=== PATIENT | male | born 1945 | race American Indian/Alaskan Native ===

== ENCOUNTER 2016-12-12 14:46 | Emergency (ER) | payer MEDICARE, BC, OTHER ==
[2016-12-12] MEDS ORDERED: Albuterol/Ipratropium 3.0-0.5 MG/3 ML Neb Soln NEB ONE (14:55)
--- NOTE | 2016-12-12 14:59 | EDM.PDOC ---
ED HPI GENERAL MEDICAL PROBLEM - General Stated Complaint: PT WOULD LIKE TO GET CHECK Time Seen by Provider: 12/12/16 14:46 - History of Present Illness INITIAL COMMENTS - FREE TEXT/NARRATIVE: HISTORY AND PHYSICAL: History of present illness: Patient 71-year-old white male patient with a cough productive of white phlegm and mild shortness of breath over last several days he states he's had congestion and cold symptoms he does have a cardiac history and has had stents placed he is declining any evaluation or possible treatment for any cardiac considerations he is convinced this is related to a cold and does agree to a breathing treatment as indicated chest x-ray and influenza screen and nothing more diagnostically discussed with him at length concerns of other considerations in the categorically dismisses consideration Review of systems: As per history of present illness and below otherwise all systems reviewed and negative. Past medical history: As per history of present illness and as reviewed below otherwise noncontributory. Surgical history: As per history of present illness and as reviewed below otherwise noncontributory. Social history: No reported history of drug or alcohol abuse. Family history: As per history of present illness and as reviewed below otherwise noncontributory. Physical exam: HEENT: Atraumatic, normocephalic, pupils reactive, negative for conjunctival pallor or scleral icterus, mucous membranes moist, throat clear, neck supple, nontender, trachea midline. Lungs: Slightly coarse with rare end expiratory wheezing breath sounds equal bilaterally, chest nontender. Heart: S1S2, regular, negative for clicks, rubs, or JVD. Abdomen: Soft, nondistended, nontender. Negative for masses or hepatosplenomegaly. Negative for costovertebral tenderness. Pelvis: Stable nontender. Genitourinary: Deferred. Rectal: Deferred. Extremities: Atraumatic, negative for cords or calf pain. Neurovascular unremarkable. Neuro: Awake, alert, oriented. Cranial nerves II through XII unremarkable. Cerebellum unremarkable. Motor and sensory unremarkable throughout. Exam nonfocal. Diagnostics: Chest x-ray influenza screen Therapeutics: Albuterol ipratropium nebulizer Impression: #1 pneumonitis #2 history of coronary disease Definitive disposition and diagnosis as appropriate pending reevaluation and review of above. - Related Data Allergies Allergy/AdvReac Type Severity Reaction Status Date / Time No Known Allergies Allergy Verified 09/02/16 10:38 Home Meds: Home Meds Insulin Aspart [NovoLOG] 30 unit SUBCUT BID 09/18/15 [History] Warfarin [Coumadin] 7.5 mg PO ASDIRECTED 09/18/15 [History] Aspirin 81 mg PO DAILY 09/02/16 [History] Enoxaparin [Lovenox] 140 mg SUBCUT Q12HR 09/02/16 [History] Insulin Detemir [Levemir] 80 units SUBCUT DAILY 09/02/16 [History] Lisinopril 2.5 mg PO DAILY 09/02/16 [History] Ticagrelor [Brilinta] 90 mg PO BID 09/02/16 [History] atorvaSTATin [Lipitor] 10 mg PO DAILY 09/02/16 [History] Warfarin Sodium [Jantoven] 5 mg ASDIRECTED 12/12/16 [History] Past Medical History HEENT History: Reports: None Other HEENT History: Pt had his eyes operated on when he was younger for [place] Cardiovascular History: Reports: Blood clots/VTE/DVT, CAD Other Cardiovascular History: Had heart surgery last Sunday at [place] for total blockage Respiratory History: Reports: None Gastrointestinal History: Reports: None Genitourinary History: Reports: None Musculoskeletal History: Reports: Arthritis Neurological History: Reports: CVA Other Neuro History: left side paralysis 7 years ago Psychiatric History: Reports: None Endocrine/Metabolic History: Reports: Diabetes, type II Hematologic History: Reports: Other (see below) Other Hematologic History: factor five disorder Immunologic History: Reports: None Oncologic (Cancer) History: Reports: None Dermatologic History: Reports: None - Infectious Disease History Infectious Disease History: Reports: Measles - Past Surgical History Head Surgeries/Procedures: Reports: None HEENT Surgical History: Reports: Eye surgery, Other (see below) Other HEENT Surgeries/Procedures: Corrective surgery for strabismus Cardiovascular Surgical History: Reports: Carotid stents Respiratory Surgical History: Reports: None GI Surgical History: Reports: None Male Surgical History: Reports: None Endocrine Surgical History: Reports: None Neurological Surgical History: Reports: None Musculoskeletal Surgical History: Reports: Other (see below) Other Musculoskeletal Surgeries/Procedures:: left knee surgery x5 and left and right wrist surgery Oncologic Surgical History: Reports: None Dermatological Surgical History: Reports: None Social & Family History - Family History Family Medical History: Noncontributory HEENT: Reports: None Cardiac: Reports: CAD, Heart failure Respiratory: Reports: None GI: Reports: None - Tobacco Use Smoking Status *Q: Never Smoker Second Hand Smoke Exposure: No - Caffeine Use Caffeine Use: Reports: Coffee Caffeine Use Comment: 6cups/day - Recreational Drug Use Recreational Drug Use: No ED ROS GENERAL - Review of Systems Review Of Systems: ROS reveals no pertinent complaints other than HPI. ED EXAM, GENERAL - Physical Exam Exam: See Below (See dictation) Course - Vital Signs Last Recorded V/S: Last Vital Signs Temp 37.6 C 12/12/16 15:05 Pulse 71 12/12/16 15:05 Resp 24 H 12/12/16 15:05 BP 119/57 L 12/12/16 15:05 Pulse Ox 96 12/12/16 15:05 - Orders/Labs/Meds Orders: Active Orders 24 hr Category Date Time Status RT Aerosol Therapy [RC] ASDIRECTED Care 12/12/16 14:55 Active Meds: Medications Discontinued Medications Generic Name Dose Route Start Last Admin Trade Name Francisca PRN Reason Stop Dose Admin Albuterol/Ipratropium 3 ml 12/12/16 14:55 12/12/16 15:33 Duoneb 3.0-0.5 Mg/3 Ml NEB 12/12/16 14:56 3 ml ONETIME ONE Administration Departure - Departure Time of Disposition: 16:43 Disposition: Home, Self-Care 01 Condition: good Clinical Impression: Influenza Referrals: Ashley Lipscomb MD [Primary Care Provider] - Additional Instructions: The following information is given to patients seen in the emergency department who are being discharged to home. This information is to outline your options for follow-up care. We provide all patients seen in our emergency department with a follow-up referral. The need for follow-up, as well as the timing and circumstances, are variable depending upon the specifics of your emergency department visit. If you don't have a primary care physician on staff, we will provide you with a referral. We always advise you to contact your personal physician following an emergency department visit to inform them of the circumstance of the visit and for follow-up with them and/or the need for any referrals to a consulting specialist. The emergency department will also refer you to a specialist when appropriate. This referral assures that you have the opportunity for followup care with a specialist. All of these measure are taken in an effort to provide you with optimal care, which includes your followup. Under all circumstances we always encourage you to contact your private physician who remains a resource for coordinating your care. When calling for followup care, please make the office aware that this follow-up is from your recent emergency room visit. If for any reason you are refused follow-up, please contact the [facility] emergency department at and asked to speak to the emergency department charge nurse. Tamiflu as prescribed continue current medications follow up primary medical doctor one to 2 days return as needed as discussed - My Orders Last 24 Hours: My Active Orders 12/12/16 14:55 RT Aerosol Therapy [RC] ASDIRECTED - Assessment/Plan Last 24 Hours: My Active Orders 12/12/16 14:55 RT Aerosol Therapy [RC] ASDIRECTED
[2016-12-12 15:15] VITALS: BP 119/57
--- NOTE | 2016-12-12 15:35 | CR ---
EXAMINATION: Two-view chest (PA and Lateral views). HISTORY: Shortness of breath. FINDINGS: The trachea is midline. The cardiomediastinal silhouette is within normal limits. No pulmonary infil trates, effusions or pneumothorax. Mild degenerative changes noted within the thoracic spine IMPRESSION: No acute cardiopulmonary process.
== END 2016-12-12 16:50 | disposition home or self-care (01) ==
LOC: MW.ED 14:46
DX: J11.1 Influenza due to unidentified influenza virus with other respiratory manifestations (principal); J18.9 Pneumonia, unspecified organism; M19.90 Unspecified osteoarthritis, unspecified site; E11.9 Type 2 diabetes mellitus without complications; Z86.73 Personal history of transient ischemic attack (TIA), and cerebral infarction without residual deficits; Z86.718 Personal history of other venous thrombosis and embolism; Z79.4 Long term (current) use of insulin; Z79.899 Other long term (current) drug therapy; Z98.890 Other specified postprocedural states
CPT/HCPCS: 71020; 71020-26; 87804; 94664; 99284; 99284-25

== ENCOUNTER 2017-07-26 14:41 | Observation (INO) | payer MEDICARE, BC, OTHER ==
--- NOTE | 2017-07-26 14:42 | EDM.PDOC ---
ED HPI GENERAL MEDICAL PROBLEM - General Time Seen by Provider: 07/26/17 14:42 Source of Information: Reports: Patient History Limitations: Reports: No Limitations - History of Present Illness INITIAL COMMENTS - FREE TEXT/NARRATIVE: HISTORY AND PHYSICAL: Chest pain History of present illness: Patient is a 71-year-old male presents to the emergency room via EMS with complaints of chest pain. Last night patient was trying to get his snowblower "up and running" when he became short of breath. He states he did go inside and the shortness of breath resolved, it did not have any chest pain at that time. Was able to fall asleep without any complications or awakenings. At approximately noon today he started having midsternal chest pain that would not resolve. He proceeded to go to [facility] for an evaluation. They did an EKG and assessed him and wanted him to be seen in the emergency room. The provider at [facility] said that his EKG there was normal but wanted him evaluated due to his cardiac history. Prior to arrival he had a total of 3 of nitroglycerin which took his pain from a 5 /10 to a 1 /10, he also had 324 mg of aspirin prior to arrival. Upon patient arrival he states his chest pain as a 1 out of 10 currently. Points to his right chest wall and says it radiates across to the left chest wall. Denies any diaphoresis, shortness of breath, nausea or vomiting. Patient has a past medical history of DVT, type 2 diabetes, hypertension, Factor V Leiden mutation, and cardiac history. He had an FL with stent placement in August 2016 at [facility]. 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 Patient is on lifetime anticoagulant therapy. He reports he stopped his lisinopril by his own choosing approximately 2 months ago. Blood sugar prior to arrival is 331. Review of systems: As per history of present illness and below otherwise all systems reviewed and negative. Past medical history: As per history of present illness and as reviewed below otherwise noncontributory. Surgical history: As per history of present illness and as reviewed below otherwise noncontributory. Social history: No reported history of drug or alcohol abuse. Family history: As per history of present illness and as reviewed below otherwise noncontributory. Physical exam: Gen.: Nontoxic appearing 71-year-old male. Able to speak in full sentences without shortness of breath. Alert and oriented. HEENT: Atraumatic, normocephalic, pupils reactive, negative for conjunctival pallor or scleral icterus, mucous membranes moist, throat clear, neck supple, nontender, trachea midline. Lungs: Clear to auscultation, breath sounds equal bilaterally, chest nontender. Heart: S1S2, regular rate and rhythm Abdomen: Soft, nondistended, nontender. Negative for masses or hepatosplenomegaly. Negative for costovertebral tenderness. Pelvis: Stable nontender. Genitourinary: Deferred. Rectal: Deferred. Extremities: Atraumatic, negative for cords or calf pain. Neurovascular unremarkable. Neuro: Awake, alert, oriented. Cranial nerves II through XII unremarkable. Cerebellum unremarkable. Motor and sensory unremarkable throughout. Exam nonfocal. Patient is subtherapeutic with his warfare and. A dose of Lovenox will be given here. Dr. Park is agreeable to admit patient for observation on telemetry. Patient is aware and agreeable. Diagnostics: CBC, CMP, troponin, EKG, one view chest, PT/INR Therapeutics: Nitroglycerin paste topical Impression: Chest pain rule out FL Plan: Observation admission for chest pain rule out FL on telemetry Definitive disposition and diagnosis as appropriate pending reevaluation and review of above. Onset: Today Duration: Hour(s): Location: Reports: Chest Bilateral Chest Pain Score (Numeric/FACES): 1 - Related Data Allergies Allergy/AdvReac Type Severity Reaction Status Date / Time No Known Allergies Allergy Verified 07/26/17 14:45 Home Meds: Home Meds Insulin Aspart [NovoLOG] 5 unit SUBCUT ACBREAKFASTANDBED 09/18/15 [History] Warfarin [Coumadin] 2.5 mg PO ASDIRECTED 09/18/15 [History] Insulin Detemir [Levemir] 80 units SUBCUT DAILY 09/02/16 [History] Warfarin Sodium [Jantoven] 5 mg PO ASDIRECTED 12/12/16 [History] Past Medical History HEENT History: Reports: None Other HEENT History: Pt had his eyes operated on when he was younger for [place] Cardiovascular History: Reports: Blood Clots/VTE/DVT, CAD Other Cardiovascular History: Had heart surgery last Sunday at [place] for total blockage Respiratory History: Reports: None Gastrointestinal History: Reports: None Genitourinary History: Reports: None Musculoskeletal History: Reports: Arthritis Neurological History: Reports: CVA Other Neuro History: left side paralysis 7 years ago Psychiatric History: Reports: None Endocrine/Metabolic History: Reports: Diabetes, Type II Hematologic History: Reports: Other (See Below) Other Hematologic History: factor five disorder Immunologic History: Reports: None Oncologic (Cancer) History: Reports: None Dermatologic History: Reports: None - Infectious Disease History Infectious Disease History: Reports: Measles - Past Surgical History HEENT Surgical History: Reports: Eye Surgery, Other (See Below) Cardiovascular Surgical History: Reports: Carotid Stents Musculoskeletal Surgical History: Reports: Other (See Below) Social & Family History - Family History Family Medical History: Noncontributory HEENT: Reports: None Cardiac: Reports: CAD, Heart Failure Respiratory: Reports: None GI: Reports: None - Tobacco Use Smoking Status *Q: Never Smoker Second Hand Smoke Exposure: No - Caffeine Use Caffeine Use: Reports: Coffee Caffeine Use Comment: 6cups/day - Recreational Drug Use Recreational Drug Use: No ED ROS GENERAL - Review of Systems Review Of Systems: See Below Constitutional: Denies: Fever, Chills, Diaphoresis HEENT: Denies: Vision Change Respiratory: Denies: Shortness of Breath, Wheezing, Cough Cardiovascular: Reports: Chest Pain GI/Abdominal: Denies: Abdominal Pain Musculoskeletal: Denies: Muscle Pain, Muscle Stiffness Skin: Denies: Cyanosis, Jaundice, Bruising Psychiatric: Denies: Anxiety ED EXAM, GENERAL - Physical Exam Exam: See Below (See dictation) Course - Vital Signs Last Recorded V/S: Last Vital Signs Temp 37.0 C 07/26/17 14:42 Pulse 56 L 07/26/17 15:54 Resp 12 07/26/17 15:54 BP 121/68 07/26/17 15:54 Pulse Ox 98 07/26/17 15:54 - Orders/Labs/Meds Orders: Active Orders 24 hr Category Date Time Status Admission Status [Patient Status] [ADT] Stat ADT 07/26/17 16:04 Ordered Cardiac Monitoring [RC] . DIRECTED Care 07/26/17 14:43 Active EKG Documentation Completion [RC] STAT Care 07/26/17 14:43 Active Sodium Chloride 0.9% [Saline Flush] Med 07/26/17 14:43 Active 10 ml FLUSH ASDIRECTED PRN Sodium Chloride 0.9% [Saline Flush] Med 07/26/17 14:43 Active 2.5 ml FLUSH ASDIRECTED PRN Saline Lock Insert [OM.PC] Stat Oth 07/26/17 14:43 Ordered Medication Orders Sodium Chloride (Saline Flush) 10 ml FLUSH ASDIRECTED PRN PRN Reason: Keep Vein Open Last Admin: 07/26/17 14:58 Dose: 10 ml Sodium Chloride (Saline Flush) 2.5 ml FLUSH ASDIRECTED PRN PRN Reason: Keep Vein Open Last Admin: 07/26/17 14:58 Dose: 2.5 ml Labs: Laboratory Tests 07/26/17 07/26/17 07/26/17 Range/Units 14:55 14:55 14:55 WBC 5.41 (4.0-11.0) K/uL RBC 4.48 L (4.50-5.90) M/uL Hgb 13.4 (13.0-17.0) g/dL Hct 39.5 (38.0-50.0) % MCV 88.2 (80.0-98.0) fL MCH 29.9 (27.0-32.0) pg MCHC 33.9 (31.0-37.0) g/dL RDW Std Deviation 43.7 (28.0-62.0) fl RDW Coeff of Lisa 14 (11.0-15.0) % Plt Count 144 L (150-400) K/uL MPV 9.80 (7.40-12.00) fL Neut % (Auto) 69.7 (48.0-80.0) % Lymph % (Auto) 20.3 (16.0-40.0) % Bibb % (Auto) 7.4 (0.0-15.0) % Eos % (Auto) 2.4 (0.0-7.0) % Baso % (Auto) 0.2 (0.0-1.5) % Neut # (Auto) 3.8 (1.4-5.7) K/uL Lymph # (Auto) 1.1 (0.6-2.4) K/uL Bibb # (Auto) 0.4 (0.0-0.8) K/uL Eos # (Auto) 0.1 (0.0-0.7) K/uL Baso # (Auto) 0.0 (0.0-0.1) K/uL Nucleated RBC % 0.0 /100WBC Nucleated RBCs # 0 K/uL INR 1.05 (0.86-1.11) Sodium 137 (136-146) mmol/L Potassium 4.3 (3.5-5.1) mmol/L Chloride 106 (98-110) mmol/L Carbon Dioxide 23 (21-31) mmol/L BUN 17 (6.0-23.0) mg/dL Creatinine 1.0 (0.6-1.5) mg/dL Est Cr Clr Drug Dosing 76.57 mL/min Estimated GFR (MDRD) > 60.0 ml/min Glucose 272 H (60-110) mg/dL Calcium 9.1 (8.8-10.8) mg/dL Total Bilirubin 0.6 (0.1-1.5) mg/dL AST 12 (5-40) IU/L ALT 13 (8-54) IU/L Alkaline Phosphatase 109 (40-150) Troponin I < 0.10 (0.0-0.29) NG/ML Total Protein 6.7 (6.0-8.0) g/dL Albumin 3.3 L (3.4-4.8) g/dL Globulin 3.4 (2.0-3.5) g/dL Albumin/Globulin Ratio 1.0 L (1.3-2.8) Meds: Medications Generic Name Dose Route Start Last Admin Trade Name Freq PRN Reason Stop Dose Admin Sodium Chloride 10 ml 07/26/17 14:43 07/26/17 14:58 Saline Flush FLUSH 10 ml ASDIRECTED PRN Administration Keep Vein Open Sodium Chloride 2.5 ml 07/26/17 14:43 07/26/17 14:58 Saline Flush FLUSH 2.5 ml ASDIRECTED PRN Administration Keep Vein Open Discontinued Medications Generic Name Dose Route Start Last Admin Trade Name Freq PRN Reason Stop Dose Admin Enoxaparin Sodium 100 mg 07/26/17 15:41 07/26/17 15:52 Lovenox SUBCUT 07/26/17 15:42 100 mg ONETIME ONE Administration Enoxaparin Sodium 30 mg 07/26/17 16:05 Lovenox SUBCUT 07/26/17 16:06 ONETIME ONE Nitroglycerin 1 gm 07/26/17 14:43 07/26/17 14:56 Nitro-Bid 2% TOP 07/26/17 14:44 1 gm ONETIME ONE Administration Departure - Departure Time of Disposition: 16:09 Disposition: Refer to Observation Condition: Good Clinical Impression: Chest pain, rule out acute myocardial infarction - My Orders Last 24 Hours: My Active Orders 07/26/17 14:43 Cardiac Monitoring [RC] . DIRECTED EKG Documentation Completion [RC] STAT Sodium Chloride 0.9% [Saline Flush] 10 ml FLUSH ASDIRECTED PRN Sodium Chloride 0.9% [Saline Flush] 2.5 ml FLUSH ASDIRECTED PRN Saline Lock Insert [OM.PC] Stat 07/26/17 16:04 Admission Status [Patient Status] [ADT] Stat - Assessment/Plan Last 24 Hours: My Active Orders 07/26/17 14:43 Cardiac Monitoring [RC] . DIRECTED EKG Documentation Completion [RC] STAT Sodium Chloride 0.9% [Saline Flush] 10 ml FLUSH ASDIRECTED PRN Sodium Chloride 0.9% [Saline Flush] 2.5 ml FLUSH ASDIRECTED PRN Saline Lock Insert [OM.PC] Stat 07/26/17 16:04 Admission Status [Patient Status] [ADT] Stat
[2017-07-26] MEDS ORDERED: Sodium Chloride 0.9% 2.5 ML Syringe FLUSH PRN (14:43)
[2017-07-26] MEDS ORDERED: Sodium Chloride 0.9% 10 ML Syringe FLUSH PRN (14:43)
[2017-07-26] MEDS ORDERED: Nitroglycerin 2% Oint 1 GM UD Packet TOP ONE (14:43)
--- NOTE | 2017-07-26 15:01 | CR ---
EXAMINATION: Portable chest radiograph. HISTORY: Chest pain. FINDINGS: The trachea is midline. The cardiomediastinal silhouette is within normal limits. No pulmonary infilt rates, effusions or pneumothorax. Osseous structures appear unremarkable. IMPRESSION: No acute cardiopulmonary process.
[2017-07-26 15:37] LABS: CHLORIDE,CL 106 mmol/L (98-110); SODIUM,NA 137 mmol/L (136-146)
[2017-07-26] MEDS ORDERED: Enoxaparin 100 MG/1 ML Syringe SUBCUT ONE ×2 (15:41→16:05)
[2017-07-26] MEDS ORDERED: Acetaminophen 325 MG Tab PO PRN (17:13)
[2017-07-26] MEDS ORDERED: oxyCODONE 5 MG Tab PO PRN (17:13)
[2017-07-26] MEDS ORDERED: Ondansetron 4 MG Tab.DIS PO PRN (17:13)
--- NOTE | 2017-07-26 17:28 | PCM.HP ---
H&P History of Present Illness - General Date of Service: 07/26/17 Admit Problem/Dx: Admission Diagnosis/Problem Admission Diagnosis/Problem Chest pain, rule out acute myocardial infarction Source of Information: Patient, Family History Limitations: Reports: No Limitations - History of Present Illness Initial Comments - Free Text/Narative: The patient is a 71-year-old gentleman who is presented to the emergency department with a complaint of chest pain. The patient does have a history of factor V Leiden mutation and which he is chronically anticoagulated. Patient says he had missed a dose of his warfarin. The patient says that he had tried to use a snowblower and had to get it up and running and became short of breath. Patient also reports that he has had chest pain across the center of his chest which had been relieved by nitroglycerin. This was also described as pressure type pain which does not radiate. Patient also had been given aspirin prior to arrival. The patient says that he is essentially pain-free right now. The patient also has a significant history of DVT, type 2 diabetes mellitus, hypertension, factor V Leiden mutation with subtherapeutic INR as well as history of myocardial infarction with stent placement in August 2016. Patient has been in his usual state of health. He's had no specific aggravating or relieving factors. Onset of Symptoms: Reports: Sudden Duration of Symptoms: Reports: Hour(s):, Improving Location: Reports: Chest Quality: Reports: Pressure Improves with: Reports: Medication Worsens with: Reports: Breathing, Movement Associated Symptoms: Reports: Shortness of Breath Bilateral Chest Pain Score (Numeric/FACES): 2 - Related Data Allergies/Adverse Reactions: Allergies Allergy/AdvReac Type Severity Reaction Status Date / Time No Known Allergies Allergy Verified 07/26/17 14:45 Home Medications: Home Meds Insulin Aspart [NovoLOG] 5 unit SUBCUT ACBREAKFASTANDBED 09/18/15 [History] Warfarin [Coumadin] 2.5 mg PO ASDIRECTED 09/18/15 [History] Insulin Detemir [Levemir] 80 units SUBCUT DAILY 09/02/16 [History] Warfarin Sodium [Jantoven] 5 mg PO ASDIRECTED 12/12/16 [History] Past Medical History HEENT History: Reports: None Other HEENT History: Pt had his eyes operated on when he was younger for paula Cardiovascular History: Reports: Blood Clots/VTE/DVT, CAD Other Cardiovascular History: Had heart surgery last Sunday at [place] for total blockage Respiratory History: Reports: None Gastrointestinal History: Reports: None Genitourinary History: Reports: None Musculoskeletal History: Reports: Arthritis Other Musculoskeletal History: Knee Pain Neurological History: Reports: CVA Other Neuro History: left side paralysis 7 years ago Psychiatric History: Reports: None Endocrine/Metabolic History: Reports: Diabetes, Type II Hematologic History: Reports: Other (See Below) Other Hematologic History: factor five disorder Immunologic History: Reports: None Oncologic (Cancer) History: Reports: None Dermatologic History: Reports: None - Infectious Disease History Infectious Disease History: Reports: Measles - Past Surgical History HEENT Surgical History: Reports: Eye Surgery, Other (See Below) Cardiovascular Surgical History: Reports: Carotid Stents Musculoskeletal Surgical History: Reports: Other (See Below) Social & Family History - Family History Family Medical History: Noncontributory HEENT: Reports: None Cardiac: Reports: CAD, Heart Failure Respiratory: Reports: None GI: Reports: None - Tobacco Use Smoking Status *Q: Never Smoker Second Hand Smoke Exposure: No - Caffeine Use Caffeine Use: Reports: Coffee Caffeine Use Comment: 6cups/day - Recreational Drug Use Recreational Drug Use: No H&P Review of Systems - Review of Systems: Review Of Systems: See Below General: Reports: No Symptoms HEENT: Reports: No Symptoms Pulmonary: Reports: Shortness of Breath Cardiovascular: Reports: Chest Pain Gastrointestinal: Reports: No Symptoms Genitourinary: Reports: No Symptoms Musculoskeletal: Reports: No Symptoms Skin: Reports: No Symptoms Psychiatric: Reports: No Symptoms Neurological: Reports: No Symptoms Hematologic/Lymphatic: Reports: No Symptoms Immunologic: Reports: No Symptoms Exam - Exam Exam: See Below - Vital Signs Vital Signs: Last Vital Signs Temp 37.0 C 07/26/17 14:42 Pulse 56 L 07/26/17 15:54 Resp 12 07/26/17 15:54 BP 121/68 07/26/17 15:54 Pulse Ox 98 07/26/17 15:54 Weight: 134.6 kg - Exam Quality Assessment: Supplemental Oxygen General: Alert, Oriented, Cooperative HEENT: Conjunctiva Clear, EACs Clear, Mucosa Moist & [place] Neck: Supple, Trachea Midline Lungs: Clear to Auscultation, Normal Respiratory Effort Cardiovascular: Regular Rate, Regular Rhythm, Other (Tender chest wall) GI/Abdominal Exam: Normal Bowel Sounds, Soft Back Exam: Decreased Range of Motion Extremities: Normal Inspection, No Pedal Edema Skin: Warm, Dry Neurological: Cranial Nerves Intact, Reflexes Equal Bilateral Neuro Extensive - Mental Status: Alert, Oriented x3 Psychiatric: Alert, Normal Affect, Normal Mood - Patient Data Result Diagrams: 07/26/17 14:55 07/26/17 14:55 *Q Meaningful Use (ADM) - VTE *Q VTE Criteria *Q: VTE Mechanical Contraindications *Q: At Risk for Falls VTE Pharmacological Contraindications *Q: High INR Value - VTE Risk Assess *Q Each Risk Factor Represents 2 Points: Age 60 - 74 Years Total Score 2 Point Risk Factors: 2 Each Risk Factor Represents 3 Points: Positive factor V Leiden Total Score 3 Point Risk Factors: 3 - Stroke *Q Stroke Criteria *Q: - AMI *Q AMI Criteria *Q: - Problem List (1) Chest pain, rule out acute myocardial infarction SNOMED Code(s): 49046320 ICD Code: R07.9 - CHEST PAIN, UNSPECIFIED Status: Acute Priority: Medium Current Visit: Yes (2) Diabetes mellitus type 2, uncontrolled, without complications SNOMED Code(s): 430367874 ICD Code: E11.65 - TYPE 2 DIABETES MELLITUS WITH HYPERGLYCEMIA Status: Chronic Priority: Medium Current Visit: Yes Qualifiers: Diabetes mellitus detention insulin use: with terminal system operator use Qualified Code( s): E11.65 - Type 2 diabetes mellitus with hyperglycemia; Z79.4 - skilled nursing ( current) use of insulin (3) Factor V Leiden mutation SNOMED Code(s): 256341944 ICD Code: D68.51 - ACTIVATED PROTEIN C RESISTANCE Status: Chronic Priority: High Current Visit: No Problem List Initiated/Reviewed/Updated: Yes Orders Last 24hrs: Active Orders 24 hr Category Date Time Status Patient Status [ADT] Routine ADT 07/26/17 17:13 Ordered EKG Documentation Completion [RC] AM Care 07/27/17 08:00 Ordered Oxygen Therapy [RC] PRN Care 07/26/17 17:13 Ordered Up ad Rylee [RC] ASDIRECTED Care 07/26/17 17:13 Ordered VTE/DVT Education [RC] PER UNIT ROUTINE Care 07/26/17 17:13 Ordered Vaccines to be Administered [RC] PER UNIT ROUTINE Care 07/26/17 17:17 Ordered Vital Signs [RC] Q4H Care 07/26/17 17:13 Ordered 2 Gram Sodium Diet [DIET] Diet 07/27/17 Breakfast Ordered CBC WITH AUTO DIFF [HEME] AM Lab 07/27/17 05:11 Ordered COMPREHENSIVE METABOLIC PN,CMP [CHEM] AM Lab 07/27/17 05:11 Ordered INR,PT,PROTHROMBIN TIME [COAG] AM Lab 07/27/17 05:11 Ordered Acetaminophen [Tylenol] Med 07/26/17 17:13 Ordered 650 mg PO Q4H PRN Insulin Regular, Human [NovoLIN R] Med 07/26/17 21:00 Ordered See Dose Instructions SUBCUT QIDACANDBED Morphine Med 07/26/17 17:13 Ordered 2 mg IVPUSH Q2H PRN Ondansetron [Zofran ODT] Med 07/26/17 17:13 Ordered 4 mg PO Q6H PRN Sodium Chloride 0.9% [Normal Saline] 1,000 ml Med 07/26/17 17:15 Ordered IV ASDIRECTED Warfarin Med 07/26/17 17:30 Ordered 2.5 mg PO ASDIRECTED Warfarin [Coumadin] Med 07/26/17 17:30 Ordered 5 mg PO ASDIRECTED oxyCODONE Med 07/26/17 17:13 Ordered 5 mg PO Q4H PRN GM Immunization Reflex [OM.PC] Click To Edit Oth 07/26/17 17:13 Ordered VTE Pharmacological Contraindications [AST] Per Unit Oth 07/26/17 17:13 Ordered Routine Resuscitation Status Routine Resus Stat 07/26/17 17:13 Ordered Medication Orders Acetaminophen (Tylenol) 650 mg PO Q4H PRN PRN Reason: Pain (Mild 1-3)/fever Sodium Chloride (Normal Saline) 1,000 mls @ 75 mls/hr IV ASDIRECTED LOLA Insulin Human Regular (Novolin R) 0 unit SUBCUT QIDACANDBED LOLA PRN Reason: Protocol Morphine Sulfate (Morphine) 2 mg IVPUSH Q2H PRN PRN Reason: Pain (severe 7-10) Stop: 07/27/17 17:16 Non-Formulary Medication (Warfarin) 2.5 mg PO ASDIRECTED LOLA Ondansetron HCl (Zofran Odt) 4 mg PO Q6H PRN PRN Reason: nausea, able to take PO Oxycodone HCl (Oxycodone) 5 mg PO Q4H PRN PRN Reason: Pain (moderate 4-6) Sodium Chloride (Saline Flush) 10 ml FLUSH ASDIRECTED PRN PRN Reason: Keep Vein Open Last Admin: 07/26/17 14:58 Dose: 10 ml Sodium Chloride (Saline Flush) 2.5 ml FLUSH ASDIRECTED PRN PRN Reason: Keep Vein Open Last Admin: 07/26/17 14:58 Dose: 2.5 ml Warfarin Sodium (Coumadin) 5 mg PO ASDIRECTED LOLA Assessment/Plan Comment:: The patient will be admitted to observation med telemetry. I've also ordered an EKG to be repeated in the morning. The patient's chest pain is atypical in nature however, he does have a significant contributing medical history in that he does have a factor V Leiden mutation and is hypercoagulable and his INR is subtherapeutic. The patient had been given Lovenox in the emergency room and I think that this should be continued. The patient should continue on his warfarin until his INR is normalized. The patient will also be kept on diabetic diet and insulin sliding scale. I've ordered a hemoglobin A1c for him. If the patient has improved sufficiently I suspect he'll likely be appropriate for discharge in the morning.
[2017-07-26] MEDS ORDERED: Morphine 2 MG/ML Syringe IV PRN (18:15)
[2017-07-26] MEDS: Sodium Chloride 0.9% 1,000 ML IV SCH (18:29)
[2017-07-26] MEDS: Insulin Regular, Human 100 Units/ML 10 ML Vial SUBCUT SCH (22:42)
[2017-07-27] MEDS ORDERED: Enoxaparin 100 MG/1 ML Syringe SUBCUT SCH (04:00)
[2017-07-27 04:21] LABS: CHLORIDE,CL 108 mmol/L (98-110); SODIUM,NA 137 mmol/L (136-146)
[2017-07-27] MEDS: Sodium Chloride 0.9% 1,000 ML IV SCH (05:56)
[2017-07-27] MEDS: Insulin Regular, Human 100 Units/ML 10 ML Vial SUBCUT SCH ×2 (06:30→12:02)
[2017-07-27 11:33] VITALS: BP 136/63
--- NOTE | 2017-07-27 13:10 | PCM.DCSUM1 ---
Discharge Summary - Hospital Course Free Text/Narrative:: Admission date July 26, 2017 Discharge date July 27, 2017 Admission diagnosis #1. ACS rule out #2. History of factor V Leyden mutation #3. History of myocardial infarction, coronary artery disease, hypertension, type 2 diabetes, DVT Discharge diagnosis #1. ACS ruled out #2. History of factor V Leyden mutation #3. History of myocardial infarction, coronary artery disease, hypertension, type 2 diabetes, DVT #4. Subtherapeutic INR secondary to noncompliance Hospital course: 71-year-old male with a past history of myocardial infarction, coronary artery disease and factor V Leyden deficiency that presented to the emergency room on 26 July complaining of pressure-like chest pain is nonradiating. ER workup revealed a normal EKG, unremarkable chest x-ray and initial set of troponins were negative. Patient was then admitted for observation and ACS rule out. There were no further events of chest pain or on telemetry. Repeat troponin 3 was negative. 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 This patient did tell me that for the past few months now he has been expressing dyspnea on exertion and orthopnea. At the time of discharge, the patient had no symptoms of chest pain, shortness of breath, fevers or chills or palpitations. He felt comfortable going home. He was advised to follow-up with his primary care provider, where lipid panel, hemoglobin A1c can be obtained. He was started on 20 mg of atorvastatin daily along with a 81 milligram aspirin daily given his history of coronary artery disease. In regards to subtherapeutic INR, he was advised to get a recheck of his INR on Sunday. He'll continue on the same warfarin dosage that he came to the hospital with. He did tell me that he missed a few dosages prior to arrival. Return precautions: Patient is advised to return to seek medical attention if he expresses chest pain, shortness of breath, palpitations or any numbness or tingling. Patient agrees to the plan - Discharge Data Discharge Date: 07/27/17 Discharge Disposition: Home, Self-Care 01 Condition: Stable - Patient Instructions Diet: Heart Healthy Diet Driving: May Drive Today Showering/Bathing: May Shower Notify Provider of: Fever, Increased Pain, Nausea and/or Vomiting Other/Special Instructions: chest pain, shortness of breath - Discharge Plan Prescriptions/Med Rec: Aspirin 81 mg PO BEDTIME 30 Days #30 tab.chew atorvaSTATin [Lipitor] 20 mg PO BEDTIME 30 Days #30 tablet Home Medications: Home Meds Insulin Aspart [NovoLOG] 5 unit SUBCUT ACBREAKFASTANDBED 09/18/15 [History] Warfarin [Coumadin] 2.5 mg PO SUTUTHSA@1400 09/18/15 [History] Insulin Detemir [Levemir] 80 units SUBCUT DAILY 09/02/16 [History] Warfarin Sodium [Jantoven] 5 mg PO MOWEFR@1400 12/12/16 [History] Aspirin 81 mg PO BEDTIME 30 Days #30 tab.chew 07/27/17 [Rx] atorvaSTATin [Lipitor] 20 mg PO BEDTIME 30 Days #30 tablet 07/27/17 [Rx] Patient Handouts: Nonspecific Chest Pain, [id number], Atorvastatin tablets, Aspirin, ASA oral tablets Referrals: Delvin Pride MD [Consulting Physician] - - Discharge Summary/Plan Comment DC Time >30 min.: No Discharge Summary/Plan Comment: Admission date July 26, 2017 Discharge date July 27, 2017 Admission diagnosis #1. ACS rule out #2. History of factor V Leyden mutation #3. History of myocardial infarction, coronary artery disease, hypertension, type 2 diabetes, DVT Discharge diagnosis #1. ACS ruled out #2. History of factor V Leyden mutation #3. History of myocardial infarction, coronary artery disease, hypertension, type 2 diabetes, DVT #4. Subtherapeutic INR secondary to noncompliance Hospital course: 71-year-old male with a past history of myocardial infarction, coronary artery disease and factor V Leyden deficiency that presented to the emergency room on 26 July complaining of pressure-like chest pain is nonradiating. ER workup revealed a normal EKG, unremarkable chest x-ray and initial set of troponins were negative. Patient was then admitted for observation and ACS rule out. There were no further events of chest pain or on telemetry. Repeat troponin 3 was negative. 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 This patient did tell me that for the past few months now he has been expressing dyspnea on exertion and orthopnea. At the time of discharge, the patient had no symptoms of chest pain, shortness of breath, fevers or chills or palpitations. He felt comfortable going home. He was advised to follow-up with his primary care provider, where lipid panel, hemoglobin A1c can be obtained. He was started on 20 mg of atorvastatin daily along with a 81 milligram aspirin daily given his history of coronary artery disease. In regards to subtherapeutic INR, he was advised to get a recheck of his INR on Sunday. He'll continue on the same warfarin dosage that he came to the hospital with. He did tell me that he missed a few dosages prior to arrival. Return precautions: Patient is advised to return to seek medical attention if he expresses chest pain, shortness of breath, palpitations or any numbness or tingling. Patient agrees to the plan - Patient Data Vitals - Most Recent: Last Vital Signs Temp 36.5 C 07/27/17 11:31 Pulse 59 L 07/27/17 11:31 Resp 18 07/27/17 11:31 BP 136/63 07/27/17 11:31 Pulse Ox 95 07/27/17 11:31 Weight - Most Recent: 134.6 kg I&O - Last 24 hours: Intake & Output 07/26/17 07/27/17 07/27/17 22:59 06:59 14:59 Intake Total 2950 1962 Output Total 875 1700 Balance 2075 262 Lab Results - Last 24 hrs: Laboratory Results - last 24 hr 07/26/17 07/26/17 07/27/17 Range/Units 17:35 21:56 03:51 WBC 3.00 L (4.0-11.0) K/uL RBC 4.13 L (4.50-5.90) M/uL Hgb 12.3 L (13.0-17.0) g/dL Hct 36.6 L (38.0-50.0) % MCV 88.6 (80.0-98.0) fL MCH 29.8 (27.0-32.0) pg MCHC 33.6 (31.0-37.0) g/dL RDW Std Deviation 43.8 (28.0-62.0) fl RDW Coeff of Lisa 13 (11.0-15.0) % Plt Count 103 L (150-400) K/uL MPV 9.30 (7.40-12.00) fL Neut % (Auto) 62.4 (48.0-80.0) % Lymph % (Auto) 26.7 (16.0-40.0) % Howard % (Auto) 8.3 (0.0-15.0) % Eos % (Auto) 2.3 (0.0-7.0) % Baso % (Auto) 0.3 (0.0-1.5) % Neut # (Auto) 1.9 (1.4-5.7) K/uL Lymph # (Auto) 0.8 (0.6-2.4) K/uL Howard # (Auto) 0.3 (0.0-0.8) K/uL Eos # (Auto) 0.1 (0.0-0.7) K/uL Baso # (Auto) 0.0 (0.0-0.1) K/uL Nucleated RBC % 0.0 /100WBC Nucleated RBCs # 0 K/uL INR (0.86-1.11) Sodium (136-146) mmol/L Potassium (3.5-5.1) mmol/L Chloride (98-110) mmol/L Carbon Dioxide (21-31) mmol/L BUN (6.0-23.0) mg/dL Creatinine (0.6-1.5) mg/dL Est Cr Clr Drug Dosing mL/min Estimated GFR (MDRD) ml/min Glucose (60-110) mg/dL POC Glucose 194 H 237 H (60-110) mg/dL Calcium (8.8-10.8) mg/dL Total Bilirubin (0.1-1.5) mg/dL AST (5-40) IU/L ALT (8-54) IU/L Alkaline Phosphatase (40-150) Troponin I (0.0-0.29) NG/ML Total Protein (6.0-8.0) g/dL Albumin (3.4-4.8) g/dL Globulin (2.0-3.5) g/dL Albumin/Globulin Ratio (1.3-2.8) 07/27/17 07/27/17 07/27/17 Range/Units 03:51 03:51 03:51 WBC (4.0-11.0) K/uL RBC (4.50-5.90) M/uL Hgb (13.0-17.0) g/dL Hct (38.0-50.0) % MCV (80.0-98.0) fL MCH (27.0-32.0) pg MCHC (31.0-37.0) g/dL RDW Std Deviation (28.0-62.0) fl RDW Coeff of Lisa (11.0-15.0) % Plt Count (150-400) K/uL MPV (7.40-12.00) fL Neut % (Auto) (48.0-80.0) % Lymph % (Auto) (16.0-40.0) % Howard % (Auto) (0.0-15.0) % Eos % (Auto) (0.0-7.0) % Baso % (Auto) (0.0-1.5) % Neut # (Auto) (1.4-5.7) K/uL Lymph # (Auto) (0.6-2.4) K/uL Howard # (Auto) (0.0-0.8) K/uL Eos # (Auto) (0.0-0.7) K/uL Baso # (Auto) (0.0-0.1) K/uL Nucleated RBC % /100WBC Nucleated RBCs # K/uL INR 1.03 (0.86-1.11) Sodium 137 (136-146) mmol/L Potassium 4.1 (3.5-5.1) mmol/L Chloride 108 (98-110) mmol/L Carbon Dioxide 23 (21-31) mmol/L BUN 18 (6.0-23.0) mg/dL Creatinine 1.1 (0.6-1.5) mg/dL Est Cr Clr Drug Dosing 69.61 mL/min Estimated GFR (MDRD) > 60.0 ml/min Glucose 376 H (60-110) mg/dL POC Glucose (60-110) mg/dL Calcium 8.7 L (8.8-10.8) mg/dL Total Bilirubin 0.3 (0.1-1.5) mg/dL AST 10 (5-40) IU/L ALT 11 (8-54) IU/L Alkaline Phosphatase 107 (40-150) Troponin I < 0.10 (0.0-0.29) NG/ML Total Protein 6.0 (6.0-8.0) g/dL Albumin 3.0 L (3.4-4.8) g/dL Globulin 3.0 (2.0-3.5) g/dL Albumin/Globulin Ratio 1.0 L (1.3-2.8) 07/27/17 07/27/17 Range/Units 05:54 09:52 WBC (4.0-11.0) K/uL RBC (4.50-5.90) M/uL Hgb (13.0-17.0) g/dL Hct (38.0-50.0) % MCV (80.0-98.0) fL MCH (27.0-32.0) pg MCHC (31.0-37.0) g/dL RDW Std Deviation (28.0-62.0) fl RDW Coeff of Lisa (11.0-15.0) % Plt Count (150-400) K/uL MPV (7.40-12.00) fL Neut % (Auto) (48.0-80.0) % Lymph % (Auto) (16.0-40.0) % Howard % (Auto) (0.0-15.0) % Eos % (Auto) (0.0-7.0) % Baso % (Auto) (0.0-1.5) % Neut # (Auto) (1.4-5.7) K/uL Lymph # (Auto) (0.6-2.4) K/uL Howard # (Auto) (0.0-0.8) K/uL Eos # (Auto) (0.0-0.7) K/uL Baso # (Auto) (0.0-0.1) K/uL Nucleated RBC % /100WBC Nucleated RBCs # K/uL INR (0.86-1.11) Sodium (136-146) mmol/L Potassium (3.5-5.1) mmol/L Chloride (98-110) mmol/L Carbon Dioxide (21-31) mmol/L BUN (6.0-23.0) mg/dL Creatinine (0.6-1.5) mg/dL Est Cr Clr Drug Dosing mL/min Estimated GFR (MDRD) ml/min Glucose (60-110) mg/dL POC Glucose 284 H (60-110) mg/dL Calcium (8.8-10.8) mg/dL Total Bilirubin (0.1-1.5) mg/dL AST (5-40) IU/L ALT (8-54) IU/L Alkaline Phosphatase (40-150) Troponin I < 0.10 (0.0-0.29) NG/ML Total Protein (6.0-8.0) g/dL Albumin (3.4-4.8) g/dL Globulin (2.0-3.5) g/dL Albumin/Globulin Ratio (1.3-2.8) Med Orders - Current: Current Medications Discontinued Medications Acetaminophen (Tylenol) 650 mg PO Q4H PRN PRN Reason: Pain (Mild 1-3)/fever Last Admin: 07/26/17 22:04 Dose: 650 mg Enoxaparin Sodium (Lovenox) 100 mg SUBCUT ONETIME ONE Stop: 07/26/17 15:42 Last Admin: 07/26/17 15:52 Dose: 100 mg Enoxaparin Sodium (Lovenox) 30 mg SUBCUT ONETIME ONE Stop: 07/26/17 16:06 Last Admin: 07/26/17 16:15 Dose: 30 mg Enoxaparin Sodium (Lovenox) 100 mg SUBCUT Q12H [facility] Last Admin: 07/27/17 03:53 Dose: 100 mg Sodium Chloride (Normal Saline) 1,000 mls @ 75 mls/hr IV ASDIRECTED [facility] Last Admin: 07/27/17 05:56 Dose: 75 mls/hr Insulin Human Regular (Novolin R) 0 unit SUBCUT QIDACANDBED [facility] PRN Reason: Protocol Last Admin: 07/27/17 12:02 Dose: 3 units Morphine Sulfate (Morphine) 2 mg IV Q2H PRN PRN Reason: Pain (severe 7-10) Nitroglycerin (Nitro-Bid 2%) 1 gm TOP ONETIME ONE Stop: 07/26/17 14:44 Last Admin: 07/26/17 14:56 Dose: 1 gm Ondansetron HCl (Zofran Odt) 4 mg PO Q6H PRN PRN Reason: nausea, able to take PO Oxycodone HCl (Oxycodone) 5 mg PO Q4H PRN PRN Reason: Pain (moderate 4-6) Sodium Chloride (Saline Flush) 10 ml FLUSH ASDIRECTED PRN PRN Reason: Keep Vein Open Last Admin: 07/26/17 14:58 Dose: 10 ml Sodium Chloride (Saline Flush) 2.5 ml FLUSH ASDIRECTED PRN PRN Reason: Keep Vein Open Last Admin: 07/26/17 14:58 Dose: 2.5 ml Warfarin Sodium (Coumadin) 2.5 mg PO SuTuThSa@1400 LOLA Warfarin Sodium (Coumadin) 5 mg PO MoWeFr@1400 LOLA *Q Meaningful Use (DIS) - VTE *Q VTE Criteria *Q: VTE Mechanical Contraindications *Q: At Risk for Falls VTE Pharmacological Contraindications *Q: High INR Value - Stroke *Q Stroke Criteria *Q: - AMI *Q AMI Criteria *Q:
[2017-07-27] MEDS ORDERED: Warfarin 5 MG Tab PO SCH (14:00)
[2017-07-28] MEDS ORDERED: Warfarin 2.5 MG Tab PO SCH (14:00)
--- NOTE | 2017-07-31 13:51 | ECHO ---
EXAM DATE: 07/26/17 PATIENT'S AGE: 71 The echocardiogram report can be seen in this patient's EMR (Electronic Medical Record) in the Reports Section. The report has also been scanned into PACs. KORI
== END 2017-07-27 12:25 | disposition home or self-care (01) ==
LOC: MW.ED 14:41 → MW.MS 16:04
PROVIDERS: ADMIT Internal Medicine; ATTEND Internal Medicine
DX: R07.9 Chest pain, unspecified (principal); D68.51 Activated protein C resistance; I25.2 Old myocardial infarction; I25.10 Atherosclerotic heart disease of native coronary artery without angina pectoris; I10 Essential (primary) hypertension; E11.65 Type 2 diabetes mellitus with hyperglycemia; R79.1 Abnormal coagulation profile; M19.90 Unspecified osteoarthritis, unspecified site; Z86.73 Personal history of transient ischemic attack (TIA), and cerebral infarction without residual deficits; Z86.718 Personal history of other venous thrombosis and embolism; Z79.01 Long term (current) use of anticoagulants; Z79.4 Long term (current) use of insulin; Z79.899 Other long term (current) drug therapy; Z98.890 Other specified postprocedural states; Z95.820 Peripheral vascular angioplasty status with implants and grafts
CPT/HCPCS: 36415; 71010; 80053; 82962; 83036; 84484; 85025; 85610; 93005; 93306; 96372; 99285; A9270; J1650; J1815; J7040; 96360; 96361; 99283; G0378

== ENCOUNTER 2018-02-17 18:22 | Emergency (ER) | payer MEDICARE, BC, OTHER ==
--- NOTE | 2018-02-17 18:30 | EDM.PDOC ---
ED HPI GENERAL MEDICAL PROBLEM - General Stated Complaint: CUT ON LEFT MIDDLE FINGER Time Seen by Provider: 02/17/18 18:25 - History of Present Illness INITIAL COMMENTS - FREE TEXT/NARRATIVE: HISTORY AND PHYSICAL: History of present illness: Patient 72-year-old male presents with concern over injury to third digit left hand he sustained a small avulsion in a volar aspect of the distal third digit there is no other tremor concern he is up-to-date on his tetanusReview of systems: As per history of present illness and below otherwise all systems reviewed and negative. Past medical history: As per history of present illness and as reviewed below otherwise noncontributory. Surgical history: As per history of present illness and as reviewed below otherwise noncontributory. Social history: No reported history of drug or alcohol abuse. Family history: As per history of present illness and as reviewed below otherwise noncontributory. Physical exam: HEENT: Atraumatic, normocephalic, pupils reactive, negative for conjunctival pallor or scleral icterus, mucous membranes moist, throat clear, neck supple, nontender, trachea midline. Lungs: Clear to auscultation, breath sounds equal bilaterally, chest nontender. Heart: S1S2, regular, negative for clicks, rubs, or JVD. Abdomen: Soft, nondistended, nontender. Negative for masses or hepatosplenomegaly. Negative for costovertebral tenderness. Pelvis: Stable nontender. Genitourinary: Deferred. Rectal: Deferred. ExPatient has approximately half centimeter superficial avulsion wound to the distal third digit of the volar aspect of his left hand CMS and neurovascular exams unremarkable Neuro: Awake, alert, oriented. Cranial nerves II through XII unremarkable. Cerebellum unremarkable. Motor and sensory unremarkable throughout. Exam nonfocal. Diagnostics: none Therapeutics: Wound was irrigated dressed with bacitracin Gelfoam and tube gauze dressing Impression: Avulsion injury third digit left hand Definitive disposition and diagnosis as appropriate pending reevaluation and review of above. Left Hand Pain Score (Numeric/FACES): 2 - Related Data Allergies Allergy/AdvReac Type Severity Reaction Status Date / Time No Known Allergies Allergy Verified 07/26/17 14:45 Home Meds: Home Meds Insulin Aspart [NovoLOG] 5 unit SUBCUT ACBREAKFASTANDBED 09/18/15 [History] Warfarin [Coumadin] 2.5 mg PO SUTUTHSA@1400 09/18/15 [History] Insulin Detemir [Levemir] 80 units SUBCUT DAILY 09/02/16 [History] Warfarin Sodium [Jantoven] 5 mg PO MOWEFR@1400 12/12/16 [History] Aspirin 81 mg PO BEDTIME 30 Days #30 tab.chew 07/27/17 [Rx] atorvaSTATin [Lipitor] 20 mg PO BEDTIME 30 Days #30 tablet 07/27/17 [Rx] Past Medical History HEENT History: Reports: None Other HEENT History: Pt had his eyes operated on when he was younger for [employer] Cardiovascular History: Reports: Blood Clots/VTE/DVT, CAD Other Cardiovascular History: Had heart surgery last Sunday at [place] for total blockage Respiratory History: Reports: None Gastrointestinal History: Reports: None Genitourinary History: Reports: None Musculoskeletal History: Reports: Arthritis Other Musculoskeletal History: Knee Pain Neurological History: Reports: CVA Other Neuro History: left side paralysis 7 years ago Psychiatric History: Reports: None Endocrine/Metabolic History: Reports: Diabetes, Type II Hematologic History: Reports: Other (See Below) Other Hematologic History: factor five disorder Immunologic History: Reports: None Oncologic (Cancer) History: Reports: None Dermatologic History: Reports: None - Infectious Disease History Infectious Disease History: Reports: Measles - Past Surgical History HEENT Surgical History: Reports: Eye Surgery, Other (See Below) Cardiovascular Surgical History: Reports: Carotid Stents Musculoskeletal Surgical History: Reports: Other (See Below) Social & Family History - Family History Family Medical History: Noncontributory HEENT: Reports: None Cardiac: Reports: CAD, Heart Failure Respiratory: Reports: None GI: Reports: None - Caffeine Use Caffeine Use: Reports: Coffee Caffeine Use Comment: 6cups/day ED ROS GENERAL - Review of Systems Review Of Systems: ROS reveals no pertinent complaints other than HPI. ED EXAM, GENERAL - Physical Exam Exam: See Below (See dictation) Course - Vital Signs Last Recorded V/S: Last Vital Signs Temp 35.7 C 02/17/18 18:29 Pulse 94 02/17/18 18:29 Resp 16 02/17/18 18:29 BP 136/77 02/17/18 18:29 Pulse Ox 95 02/17/18 18:29 Departure - Departure Time of Disposition: 18:28 Disposition: Home, Self-Care 01 Condition: Good Clinical Impression: Hand injury - Discharge Information Additional Instructions: The following information is given to patients seen in the emergency department who are being discharged to home. This information is to outline your options for follow-up care. We provide all patients seen in our emergency department with a follow-up referral. The need for follow-up, as well as the timing and circumstances, are variable depending upon the specifics of your emergency department visit. If you don't have a primary care physician on staff, we will provide you with a referral. We always advise you to contact your personal physician following an emergency department visit to inform them of the circumstance of the visit and for follow-up with them and/or the need for any referrals to a consulting specialist. The emergency department will also refer you to a specialist when appropriate. This referral assures that you have the opportunity for followup care with a specialist. All of these measure are taken in an effort to provide you with optimal care, which includes your followup. Under all circumstances we always encourage you to contact your private physician who remains a resource for coordinating your care. When calling for followup care, please make the office aware that this follow-up is from your recent emergency room visit. If for any reason you are refused follow-up, please contact the [facility] emergency department at and asked to speak to the emergency department charge nurse. Follow-up primary medical doctor dressing changes daily as discussed return as needed as discussed
[2018-02-17 19:08] VITALS: BP 136/75
== END 2018-02-17 18:48 | disposition home or self-care (01) ==
LOC: MW.ED 18:22
DX: S61.213A Laceration without foreign body of left middle finger without damage to nail, initial encounter (principal); W45.8XXA Other foreign body or object entering through skin, initial encounter; Z79.899 Other long term (current) drug therapy; Z79.4 Long term (current) use of insulin; Z79.82 Long term (current) use of aspirin
CPT/HCPCS: 99282

== ENCOUNTER 2019-10-14 12:09 | Observation (INO) | payer MEDICARE, BC, OTHER ==
--- NOTE | 2019-10-14 12:19 | EDM.PDOC ---
ED HPI GENERAL MEDICAL PROBLEM - General Chief Complaint: Trauma Stated Complaint: BROUGHT IN VIA AMBULANCE. FELL Time Seen by Provider: 10/14/19 12:19 Source of Information: Reports: Patient, EMS - History of Present Illness INITIAL COMMENTS - FREE TEXT/NARRATIVE: HISTORY AND PHYSICAL: History of present illness: [presents via EMS post fall He slipped and fell today landing on his right side he complains of right hip and shoulder pain], 8 out of 10 hip pain unable to move due to pain Shoulder pain is secondary complaint does not provide rating at this time pain with movement x-ray of the right shoulder does have decreased joint space but no definite fracture per radiology His fever nausea vomiting chills sweats no chest pain shortness of breath headache dizziness or palpitation no bowel or urine symptoms Review of systems: As per history of present illness and below otherwise all systems reviewed and negative. Past medical history: As per history of present illness and as reviewed below otherwise noncontributory. Surgical history: As per history of present illness and as reviewed below otherwise noncontributory. Social history: No reported history of drug or alcohol abuse. Family history: As per history of present illness and as reviewed below otherwise noncontributory. Physical exam: HEENT: Atraumatic, normocephalic, pupils reactive, negative for conjunctival pallor or scleral icterus, mucous membranes moist, throat clear, neck supple, nontender, trachea midline. Lungs: Clear to auscultation, breath sounds equal bilaterally, chest nontender. Heart: S1S2, regular, negative for clicks, rubs, or JVD. Abdomen: Soft, nondistended, nontender. Negative for masses or hepatosplenomegaly. Negative for costovertebral tenderness. Pelvis: Stable nontender. Genitourinary: Deferred. Rectal: Deferred. Extremities: Right lower extremity shortening with external rotation tender over right hip, negative for cords or calf pain. Neurovascular unremarkable. Neuro: Awake, alert, oriented. Cranial nerves II through XII unremarkable. Cerebellum unremarkable. Motor and sensory unremarkable throughout. Exam nonfocal. Diagnostics: [The CMP UA INR Head CT no contrast Cervical spine no contrast Right shoulder 3 views plain films Pelvis and right hip plain films ] Therapeutics: [EMS provided 100 mcg of fentanyl Morphine 2 mg IV provided Dilaudid 0.5 mg IV provided Noted 1 mg IV Normal saline Zofran] Dr. Hardy orthopedist is consulted for disposition evaluation and treatment Impression: [Impacted subcapital right hip fracture right shoulder injury Fall from standing chronic Hx baseline Definitive disposition and diagnosis as appropriate pending reevaluation and review of above. right hip/shoulder Pain Score (Numeric/FACES): 10 - Related Data Allergies Allergy/AdvReac Type Severity Reaction Status Date / Time No Known Allergies Allergy Verified 10/14/19 12:17 Home Meds: Home Meds Insulin Aspart [NovoLOG] 5 unit SUBCUT ACBREAKFASTANDBED 09/18/15 [History] Warfarin [Coumadin] 2.5 mg PO SUTUTHSA@1400 09/18/15 [History] Insulin Detemir [Levemir] 80 units SUBCUT DAILY 09/02/16 [History] Warfarin Sodium [Jantoven] 5 mg PO MOWEFR@1400 12/12/16 [History] Aspirin 81 mg PO BEDTIME 30 Days #30 tab.chew 07/27/17 [Rx] atorvaSTATin [Lipitor] 20 mg PO BEDTIME 30 Days #30 tablet 07/27/17 [Rx] Past Medical History HEENT History: Reports: None Other HEENT History: Pt had his eyes operated on when he was younger for [employer] Cardiovascular History: Reports: Blood Clots/VTE/DVT, CAD Other Cardiovascular History: Had heart surgery last Sunday at [place] for total blockage Respiratory History: Reports: None Gastrointestinal History: Reports: None Genitourinary History: Reports: None Musculoskeletal History: Reports: Arthritis Other Musculoskeletal History: Knee Pain Neurological History: Reports: CVA Other Neuro History: left side paralysis 7 years ago Psychiatric History: Reports: None Endocrine/Metabolic History: Reports: Diabetes, Type II Hematologic History: Reports: Other (See Below) Other Hematologic History: factor five disorder Immunologic History: Reports: None Oncologic (Cancer) History: Reports: None Dermatologic History: Reports: None - Infectious Disease History Infectious Disease History: Reports: Measles - Past Surgical History HEENT Surgical History: Reports: Eye Surgery, Other (See Below) Cardiovascular Surgical History: Reports: Carotid Stents Musculoskeletal Surgical History: Reports: Other (See Below) Social & Family History - Family History Family Medical History: Noncontributory HEENT: Reports: None Cardiac: Reports: CAD, Heart Failure Respiratory: Reports: None GI: Reports: None - Caffeine Use Caffeine Use: Reports: Coffee Caffeine Use Comment: 6cups/day Review of Systems - Review of Systems Review Of Systems: See Below ED EXAM, GENERAL - Physical Exam Exam: See Below Course - Vital Signs Last Recorded V/S: Last Vital Signs Temp 96.5 F 10/14/19 12:17 Pulse 72 10/14/19 14:40 Resp 18 10/14/19 12:17 BP 116/59 L 10/14/19 14:40 Pulse Ox 97 10/14/19 14:40 - Orders/Labs/Meds Orders: Active Orders 24 hr Category Date Time Status EKG Documentation Completion [RC] STAT Care 10/14/19 12:18 Active Notify Provider Consults [RC] ASDIRECTED Care 10/14/19 15:04 Active Consult to Physician [CONS] Stat Cons 10/14/19 15:02 Active UA RFX NAE AND CULT IF INDIC [URIN] Stat Lab 10/14/19 12:17 Ordered Sodium Chloride 0.9% [Normal Saline] 1,000 ml Med 10/14/19 13:45 Active IV STAT Medication Orders Sodium Chloride (Normal Saline) 1,000 mls @ 100 mls/hr IV STAT LOLA Last Admin: 10/14/19 13:49 Dose: 100 mls/hr Labs: Laboratory Tests 10/14/19 10/14/19 10/14/19 Range/Units 12:20 12:20 12:20 WBC 6.10 (4.0-11.0) K/uL RBC 4.60 (4.50-5.90) M/uL Hgb 13.6 (13.0-17.0) g/dL Hct 39.9 (38.0-50.0) % MCV 86.7 (80.0-98.0) fL MCH 29.6 (27.0-32.0) pg MCHC 34.1 (31.0-37.0) g/dL RDW Std Deviation 42.8 (28.0-62.0) fl RDW Coeff of Lisa 14 (11.0-15.0) % Plt Count 143 L (150-400) K/uL MPV 9.80 (7.40-12.00) fL Neut % (Auto) 78.5 (48.0-80.0) % Lymph % (Auto) 11.6 L (16.0-40.0) % [place] % (Auto) 8.4 (0.0-15.0) % Eos % (Auto) 1.3 (0.0-7.0) % Baso % (Auto) 0.2 (0.0-1.5) % Neut # (Auto) 4.8 (1.4-5.7) K/uL Lymph # (Auto) 0.7 (0.6-2.4) K/uL [place] # (Auto) 0.5 (0.0-0.8) K/uL Eos # (Auto) 0.1 (0.0-0.7) K/uL Baso # (Auto) 0.0 (0.0-0.1) K/uL Nucleated RBC % 0.0 /100WBC Nucleated RBCs # 0 K/uL INR 1.02 Sodium 140 (136-148) mmol/L Potassium 3.9 (3.5-5.1) mmol/L Chloride 105 (98-107) mmol/L Carbon Dioxide 26.6 (21.0-32.0) mmol/L BUN 17 (7.0-18.0) mg/dL Creatinine 1.0 (0.8-1.3) mg/dL Est Cr Clr Drug Dosing 73.24 mL/min Estimated GFR (MDRD) > 60.0 ml/min Glucose 275 H (74-106) mg/dL Calcium 8.6 (8.5-10.1) mg/dL Total Bilirubin 0.4 (0.2-1.0) mg/dL AST 15 (15-37) IU/L ALT 20 (14-63) IU/L Alkaline Phosphatase 112 (46-116) U/L Troponin I < 0.050 (0.000-0.056) ng/mL Total Protein 6.4 (6.4-8.2) g/dL Albumin 2.8 L (3.4-5.0) g/dL Globulin 3.6 (2.6-4.0) g/dL Albumin/Globulin Ratio 0.8 L (0.9-1.6) Meds: Medications Generic Name Dose Route Start Last Admin Trade Name Freq PRN Reason Stop Dose Admin Sodium Chloride 1,000 mls @ 100 mls/hr 10/14/19 13:45 10/14/19 13:49 Normal Saline IV 100 mls/hr STAT LOLA Administration Discontinued Medications Generic Name Dose Route Start Last Admin Trade Name Francisca PRN Reason Stop Dose Admin Hydromorphone HCl 0.5 mg 10/14/19 13:37 10/14/19 13:50 Dilaudid IVPUSH 10/14/19 13:38 0.5 mg ONETIME ONE Administration Hydromorphone HCl 1 mg 10/14/19 15:38 10/14/19 15:49 Dilaudid IVPUSH 10/14/19 15:39 1 mg ONETIME ONE Administration Morphine Sulfate 2 mg 10/14/19 12:35 10/14/19 12:39 Morphine IVPUSH 10/14/19 12:36 2 mg ONETIME ONE Administration Ondansetron HCl 4 mg 10/14/19 13:52 10/14/19 13:56 Zofran IVPUSH 10/14/19 13:53 4 mg ONETIME ONE Administration Departure - Departure Time of Disposition: 17:08 Disposition: Still A Patient 30 Condition: Fair Clinical Impression: Hip fracture - Discharge Information Referrals: PCP,Not In Area [Primary Care Provider] - Forms: ED Department Discharge Sepsis Event Note - Focused Exam Vital Signs: Vital Signs Temp Pulse Resp BP Pulse Ox 10/14/19 14:40 72 116/59 L 97 10/14/19 12:17 96.5 F 74 18 131/80 93 L Date Exam was Performed: 10/14/19 Time Exam was Performed: 17:08 - My Orders Last 24 Hours: My Active Orders 10/14/19 12:17 UA RFX NAE AND CULT IF INDIC [URIN] Stat 10/14/19 12:18 EKG Documentation Completion [RC] STAT 10/14/19 13:45 Sodium Chloride 0.9% [Normal Saline] 1,000 ml IV STAT 10/14/19 15:02 Consult to Physician [CONS] Stat 10/14/19 15:04 Notify Provider Consults [RC] ASDIRECTED - Assessment/Plan Last 24 Hours: My Active Orders 10/14/19 12:17 UA RFX NAE AND CULT IF INDIC [URIN] Stat 10/14/19 12:18 EKG Documentation Completion [RC] STAT 10/14/19 13:45 Sodium Chloride 0.9% [Normal Saline] 1,000 ml IV STAT 10/14/19 15:02 Consult to Physician [CONS] Stat 10/14/19 15:04 Notify Provider Consults [RC] ASDIRECTED
[2019-10-14] MEDS ORDERED: Morphine 2 MG/ML Syringe IVPUSH ONE (12:35)
[2019-10-14 13:12] LABS: BLOOD UREA NITROGEN,BUN 17 mg/dL (7.0-18.0); CARBON DIOXIDE,CO2 26.6 mmol/L (21.0-32.0); CHLORIDE,CL 105 mmol/L (98-107); GLUCOSE RANDOM 275 mg/dL (74-106); POTASSIUM,K 3.9 mmol/L (3.5-5.1); SODIUM,NA 140 mmol/L (136-148)
--- NOTE | 2019-10-14 13:13 | CR ---
Chest: Portable supine view of the chest was obtained. Comparison: Prior chest x-ray of 07/26/17. Heart size and mediastinum are normal. Lungs are clear. Bony structures are unremarkable. Impression: 1. Nothing acute is appreciated on portable chest x-ray. Diagnostic code #1 This report was dictated in [place] Standard Time
--- NOTE | 2019-10-14 13:23 | CT ---
CT cervical spine Technique: Multiple axial sections were obtained from above C1 inferiorly to the top of T3. Reconstructed sagittal and coronal images were reviewed. Findings: Scoliosis is noted within the spine. Mild disc space narrowing is noted at C4-5 and posterior at C5-6, C6-7 and C7-T1. Mild disc space narrowing at T1-2 and T2-3. Mild diffuse posterior osteophytes are seen most prominent at C4-5. Diffuse anterior endplate osteophytes are seen most prominent at C7-T1. Mild scattered degenerative apophyseal change is seen throughout the cervical spine. No fracture is identified. No abnormal subluxation is seen. Mild left-sided neural foraminal stenosis is noted at C5-6. Other neural foramina are patent. Posterior spurring at C4-5 causes minimal central canal stenosis. Impression: 1. Degenerative change as noted above with scoliosis. 2. No acute fracture or abnormal subluxation is seen. Diagnostic code #3 This report was dictated in [place] Standard Time
--- NOTE | 2019-10-14 13:23 | CR ---
Right shoulder: 2 views of the right shoulder were obtained. Comparison: No prior right shoulder imaging. Glenohumeral alignment appears to be within normal limits although AP view is less than optimal in position. Mild joint space narrowing is seen within the acromioclavicular joint. No definite acute fracture is seen. Impression: 1. Slightly less than optimal positioning. 2. No definite acute finding is seen. Note: Please correlate that patient can move arm correctly and if patient clinically could have dislocation, axillary view is then recommended. Diagnostic code #3 This report was dictated in [place] Standard Time
--- NOTE | 2019-10-14 13:23 | CR ---
Pelvis and right hip: AP view of the pelvis was obtained as well as AP and lateral views of the right hip. Comparison: No prior pelvis or right hip exam. Deformed right femoral neck is seen. Uncertain if this is due to an acute impacted fracture or could represent old fracture. Left hip is unremarkable. There is moderate joint space narrowing within the right hip. Sacroiliac joints are unremarkable. Impression: 1. Impacted subcapital fracture. Uncertain if this is acute or old. Please correlate with the patient's symptoms. If any clinical question remains, CT could be considered. 2. No other acute findings seen on AP pelvis or 2 view right hip exam. Diagnostic code #3 This report was dictated in [place] Standard Time
[2019-10-14] MEDS ORDERED: HYDROmorphone 2 MG/ML Syringe IVPUSH ONE (13:37)
--- NOTE | 2019-10-14 13:42 | CT ---
Head CT Technique: Multiple axial sections through the brain were obtained. Intravenous contrast was not utilized. Limitations: Artifact is noted on the base cuts from patient motion. Comparison: No prior intracranial imaging. Findings: Ventricles along with basal cisterns and sulci over the convexities are mildly prominent. No abnormal parenchymal densities are seen. No evidence of intracranial hemorrhage. No midline shift or mass effect is appreciated. Bone window settings were reviewed which shows minimal areas of scattered mucosal thickening within the paranasal sinuses. Nothing acute is seen within the paranasal sinuses. Mild mucosal thickening is seen within the inferior right mastoid sinus. No acute calvarial abnormality is appreciated. Impression: 1. Mild mucosal thickening within the right mastoid sinuses as well as within the paranasal sinuses. This is most likely incidental and chronic. 2. Generalized atrophy. 3. Motion artifact within the base cuts. 4. No acute intracranial abnormality is otherwise seen. Diagnostic code #2 This report was dictated in [place] Standard Time
[2019-10-14] MEDS ORDERED: Sodium Chloride 0.9% 1,000 ML IV SCH (13:45)
[2019-10-14] MEDS ORDERED: Ondansetron 4 MG/2 ML SDV IVPUSH ONE (13:52)
[2019-10-14] MEDS ORDERED: HYDROmorphone 1 MG/ML Syringe IVPUSH ONE (15:38)
[2019-10-14] MEDS ORDERED: Acetaminophen/HYDROcodone 325-5 MG Tab PO ONE (17:37)
[2019-10-14] MEDS ORDERED: Acetaminophen/HYDROcodone 325-5 MG Tab PO PRN (18:01)
--- NOTE | 2019-10-14 18:43 | PCM.CONS ---
H&P History of Present Illness - General Date of Service: 10/14/19 Admit Problem/Dx: Admission Diagnosis/Problem Admission Diagnosis/Problem Fracture of proximal end of femur - History of Present Illness Initial Comments - Free Text/Narative: The patient is a 74 year old male with past medical hx of CAD, Afib, Factor V Leiden, DMII who presented to the ER with right hip pain after fall on the ice. He landed on his right hip and shoulder. Patient denies fever/chills, chest pain, palpitations, shortness of breath, abdominal pain, nausea/vomiting, constipation/diarrhea, burning with urination, or syncope. Patient report hx of Afib but not currently in Afib. Hx of DVT and Factor V Leiden for which he takes Eliquis. Hx of cardiac stents, last stent 3 years ago. Reports 4 months ago had stress test with Dr. Pride, who reported some blockage but no need for stent at this time. In the ER, workup showed no leukocytosis, no anemia, INR 1.02, elevated glucose 275, negative troponin. EKG showed NSR, no ST elevation, HR 66. Imaging studies showed right impacted subcapital hip fracture but CXR, right shoulder, cervical CT, and head CT were negative for acute changes. Given morphine, Dilaudid, Zofran, and IVF in ER. Dr. Hardy, ortho, admitted the patient and consulted medical team for comorbidities. 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 Cardiovascular History: Reports: Afib, Blood Clots/VTE/DVT, CAD, High Cholesterol, Stents Other Cardiovascular History: Had heart surgery last Sunday at [place] for total blockage Respiratory History: Reports: None Gastrointestinal History: Reports: None Genitourinary History: Reports: None Musculoskeletal History: Reports: Arthritis Other Musculoskeletal History: Knee Pain Neurological History: Reports: CVA Other Neuro History: left side paralysis 7 years ago Psychiatric History: Reports: None Endocrine/Metabolic History: Reports: Diabetes, Type II Hematologic History: Reports: Other (See Below) Other Hematologic History: factor five disorder Immunologic History: Reports: None Oncologic (Cancer) History: Reports: None Dermatologic History: Reports: None - Infectious Disease History Infectious Disease History: Reports: Measles - Past Surgical History HEENT Surgical History: Reports: Eye Surgery, Other (See Below) Cardiovascular Surgical History: Reports: Carotid Stents Musculoskeletal Surgical History: Reports: Other (See Below) Social & Family History - Family History Family Medical History: Noncontributory HEENT: Reports: None Cardiac: Reports: CAD, Heart Failure Respiratory: Reports: None GI: Reports: None - Tobacco Use Smoking Status *Q: Never Smoker Second Hand Smoke Exposure: No - Caffeine Use Caffeine Use: Reports: Coffee Caffeine Use Comment: 6cups/day - Alcohol Use Alcohol Use History: No - Recreational Drug Use Recreational Drug Use: No H&P Review of Systems - Review of Systems: Review Of Systems: See Below General: Reports: No Symptoms HEENT: Reports: No Symptoms Pulmonary: Reports: No Symptoms Cardiovascular: Reports: No Symptoms Gastrointestinal: Reports: No Symptoms Genitourinary: Reports: No Symptoms Musculoskeletal: Reports: Shoulder Pain, Other (right hip pain) Skin: Reports: No Symptoms Psychiatric: Reports: No Symptoms Neurological: Reports: No Symptoms Hematologic/Lymphatic: Reports: No Symptoms Immunologic: Reports: No Symptoms Exam - Exam Exam: See Below - Vital Signs Vital Signs: Last Vital Signs Temp 97.7 F 10/14/19 17:25 Pulse 72 10/14/19 17:25 Resp 18 10/14/19 17:25 BP 132/54 L 10/14/19 17:25 Pulse Ox 95 10/14/19 17:25 Weight: 127.006 kg - Exam General: Alert, Oriented, Cooperative HEENT: Conjunctiva Clear, EOMI, Mucosa Moist & [place], Posterior Pharynx Clear, Pupils Equal, Pupils Reactive Neck: Supple, Trachea Midline Lungs: Clear to Auscultation, Normal Respiratory Effort Cardiovascular: Regular Rate, Regular Rhythm GI/Abdominal Exam: Normal Bowel Sounds, Soft, Non-Tender, No Distention Extremities: Other (right hip external rotated) Skin: Warm, Dry, Intact Neuro Extensive - Mental Status: Alert, Oriented x3 Psychiatric: Alert, Normal Affect, Normal Mood - Patient Data Lab Results Last 24 hrs: Laboratory Results - last 24 hr 10/14/19 10/14/19 10/14/19 Range/Units 12:20 12:20 12:20 WBC 6.10 (4.0-11.0) K/uL RBC 4.60 (4.50-5.90) M/uL Hgb 13.6 (13.0-17.0) g/dL Hct 39.9 (38.0-50.0) % MCV 86.7 (80.0-98.0) fL MCH 29.6 (27.0-32.0) pg MCHC 34.1 (31.0-37.0) g/dL RDW Std Deviation 42.8 (28.0-62.0) fl RDW Coeff of Lisa 14 (11.0-15.0) % Plt Count 143 L (150-400) K/uL MPV 9.80 (7.40-12.00) fL Neut % (Auto) 78.5 (48.0-80.0) % Lymph % (Auto) 11.6 L (16.0-40.0) % [place] % (Auto) 8.4 (0.0-15.0) % Eos % (Auto) 1.3 (0.0-7.0) % Baso % (Auto) 0.2 (0.0-1.5) % Neut # (Auto) 4.8 (1.4-5.7) K/uL Lymph # (Auto) 0.7 (0.6-2.4) K/uL [place] # (Auto) 0.5 (0.0-0.8) K/uL Eos # (Auto) 0.1 (0.0-0.7) K/uL Baso # (Auto) 0.0 (0.0-0.1) K/uL Nucleated RBC % 0.0 /100WBC Nucleated RBCs # 0 K/uL INR 1.02 Sodium 140 (136-148) mmol/L Potassium 3.9 (3.5-5.1) mmol/L Chloride 105 (98-107) mmol/L Carbon Dioxide 26.6 (21.0-32.0) mmol/L BUN 17 (7.0-18.0) mg/dL Creatinine 1.0 (0.8-1.3) mg/dL Est Cr Clr Drug Dosing 73.24 mL/min Estimated GFR (MDRD) > 60.0 ml/min Glucose 275 H (74-106) mg/dL Calcium 8.6 (8.5-10.1) mg/dL Total Bilirubin 0.4 (0.2-1.0) mg/dL AST 15 (15-37) IU/L ALT 20 (14-63) IU/L Alkaline Phosphatase 112 (46-116) U/L Troponin I < 0.050 (0.000-0.056) ng/mL Total Protein 6.4 (6.4-8.2) g/dL Albumin 2.8 L (3.4-5.0) g/dL Globulin 3.6 (2.6-4.0) g/dL Albumin/Globulin Ratio 0.8 L (0.9-1.6) Result Diagrams: 10/14/19 12:20 10/14/19 12:20 Sepsis Event Note - Evaluation Sepsis Screening Result: No Definite Risk - Focused Exam Vital Signs: Vital Signs Temp Pulse Resp BP Pulse Ox 10/14/19 17:25 97.7 F 72 18 132/54 L 95 10/14/19 15:30 77 18 121/76 95 10/14/19 14:40 72 116/59 L 97 10/14/19 13:45 69 18 123/57 L 96 10/14/19 13:00 70 18 117/55 L 96 10/14/19 12:17 96.5 F 74 18 131/80 93 L Date Exam was Performed: 10/14/19 Time Exam was Performed: 18:57 Consult PN Assessment/Plan Procedures: Procedures ASSAY OF AMYLASE (04/05/16) ASSAY OF LIPASE (04/05/16) ASSAY OF NATRIURETIC PEPTIDE (04/05/16) ASSAY OF TROPONIN QUANT (07/26/17) BLOOD TYPING SEROLOGIC ABO (09/02/16) BLOOD TYPING SEROLOGIC RH(D) (09/02/16) CARDIOVASCULAR STRESS TEST (08/08/17) CHEST X-RAY 1 VIEW FRONTAL (07/26/17) CHEST X-RAY 2VW FRONTAL&LATL (12/12/16) COMPLETE CBC W/AUTO DIFF WBC (07/26/17) COMPREHEN METABOLIC PANEL (07/26/17) CT ABD & PELVIS W/O CONTRAST (04/05/16) ELECTROCARDIOGRAM TRACING (07/26/17) EMERGENCY DEPT VISIT (02/17/18) EMERGENCY DEPT VISIT (07/26/17) EMERGENCY DEPT VISIT (12/12/16) EMERGENCY DEPT VISIT (04/05/16) EMERGENCY DEPT VISIT (09/18/15) EVALUATE PT USE OF INHALER (12/12/16) EXTREMITY STUDY (04/24/18) GLUCOSE BLOOD TEST (07/26/17) GLYCOSYLATED HEMOGLOBIN TEST (07/26/17) HT MUSCLE IMAGE SPECT MULT (08/08/17) HYDRATE IV INFUSION ADD-ON (04/05/16) INFLUENZA ASSAY W/OPTIC (12/12/16) LIPID PANEL (04/05/16) PROTHROMBIN TIME (08/27/17) RBC ANTIBODY SCREEN (09/02/16) ROUTINE VENIPUNCTURE (08/27/17) THER/PROPH/DIAG INJ IV PUSH (04/05/16) THER/PROPH/DIAG INJ SC/IM (07/26/17) TTE W/DOPPLER COMPLETE (07/26/17) URINALYSIS AUTO W/SCOPE (04/05/16) X-RAY EXAM OF KNEE 3 (10/07/16) X-RAY EXAM OF WRIST (09/18/15) Problem List Initiated/Reviewed/Updated: Yes Plan: 1. Right impacted subcapital femur fracture- ortho is primary team, plan to transfer to [place] tomorrow. Pain control with [place] and Dilaudid q 4 prn. 2. CAD- monitor on telemetry, continue Lipitor, consider cardiology clearance in [place] 3. DMII- continue home Levemir 80 units AM, 60 units PM, place on sliding scale and accuchecks. Get HA1c. 4. Hx of Factor V Leiden, DVT and Afib- hold anticoagulation, rate controlled without medications, monitor on telemetry. DVT prophylaxis per primary team when they deem it appropriate.
[2019-10-14] MEDS ORDERED: Acetaminophen 325 MG Tab PO PRN (18:59)
[2019-10-14] MEDS ORDERED: Ondansetron 4 MG/2 ML SDV IVPUSH PRN (18:59)
[2019-10-14] MEDS ORDERED: Albuterol/Ipratropium 3.0-0.5 MG/3 ML Neb Soln NEB PRN (18:59)
[2019-10-14] MEDS: Insulin Aspart 100 Units/ML 3 ML Pen SUBCUT SCH (20:52)
[2019-10-14] MEDS ORDERED: Insulin Detemir 100 Units/ML 3 ML Pen SUBCUT SCH (21:00)
[2019-10-14] MEDS: Lactated Ringers 1,000 ML IV SCH (21:23)
[2019-10-15] MEDS: HYDROmorphone 1 MG/ML Syringe IVPUSH PRN ×2 (00:07→04:42)
[2019-10-15 06:51] LABS: BLOOD UREA NITROGEN,BUN 15 mg/dL (7.0-18.0); CARBON DIOXIDE,CO2 28.7 mmol/L (21.0-32.0); CHLORIDE,CL 104 mmol/L (98-107); GLUCOSE RANDOM 225 mg/dL (74-106); POTASSIUM,K 4.4 mmol/L (3.5-5.1); SODIUM,NA 139 mmol/L (136-148)
[2019-10-15 06:52] LABS: HEMOGLOBIN A1C 12.3 % (4.5-6.2)
[2019-10-15] MEDS: Lactated Ringers 1,000 ML IV SCH (07:16)
--- NOTE | 2019-10-15 07:19 | PCM.HP.2 ---
H&P History of Present Illness - General Date of Service: 10/15/19 Admit Problem/Dx: Admission Diagnosis/Problem Admission Diagnosis/Problem Fracture of proximal end of femur Source of Information: Patient, Family, Provider History Limitations: Reports: No Limitations - History of Present Illness Onset of Symptoms: Reports: Sudden Symptom Onset Date: 10/14/19 Duration of Symptoms: Reports: Hour(s): Location: Reports: Lower Extremity, Right Quality: Reports: Stabbing, Throbbing Severity: Severe Improves with: Reports: Immobilization Worsens with: Reports: Movement Associated Symptoms: Reports: No Other Symptoms right hip/shoulder Pain Score (Numeric/FACES): 10 - Related Data Allergies/Adverse Reactions: Allergies Allergy/AdvReac Type Severity Reaction Status Date / Time No Known Allergies Allergy Verified 10/14/19 12:17 Home Medications: Home Meds Insulin Aspart [NovoLOG] 10 units INJECT BEDTIME 10/14/19 [History] Insulin Aspart [NovoLOG] 15 units INJECT ACBREAKFAST 10/14/19 [History] Insulin Detemir [Levemir] 60 units INJECT BEDTIME 10/14/19 [History] Insulin Detemir [Levemir] 80 unit INJECT ACBREAKFAST 10/14/19 [History] Past Medical History HEENT History: Reports: None Other HEENT History: Pt had his eyes operated on when he was younger for Tappx Cardiovascular History: Reports: Afib, Blood Clots/VTE/DVT, CAD, High Cholesterol, Stents Other Cardiovascular History: Had heart surgery last Sunday at [place] for total blockage Respiratory History: Reports: None Gastrointestinal History: Reports: None Genitourinary History: Reports: None Musculoskeletal History: Reports: Arthritis Other Musculoskeletal History: Knee Pain Neurological History: Reports: CVA Other Neuro History: left side paralysis 7 years ago Psychiatric History: Reports: None Endocrine/Metabolic History: Reports: Diabetes, Type II Hematologic History: Reports: Other (See Below) Other Hematologic History: factor five disorder Immunologic History: Reports: None Oncologic (Cancer) History: Reports: None Dermatologic History: Reports: None - Infectious Disease History Infectious Disease History: Reports: Measles - Past Surgical History HEENT Surgical History: Reports: Eye Surgery, Other (See Below) Cardiovascular Surgical History: Reports: Carotid Stents Musculoskeletal Surgical History: Reports: Other (See Below) Social & Family History - Family History Family Medical History: Noncontributory HEENT: Reports: None Cardiac: Reports: CAD, Heart Failure Respiratory: Reports: None GI: Reports: None - Tobacco Use Smoking Status *Q: Never Smoker Years of Tobacco use: 15 Packs/Tins Daily: 3 Used Tobacco, but Quit: Yes Month/Year Tobacco Last Used: 40 years ago Second Hand Smoke Exposure: No - Caffeine Use Caffeine Use: Reports: Coffee Caffeine Use Comment: 6cups/day - Recreational Drug Use Recreational Drug Use: No H&P Review of Systems - Review of Systems: Review Of Systems: See Below General: Reports: No Symptoms HEENT: Reports: Glasses Pulmonary: Reports: No Symptoms Cardiovascular: Reports: No Symptoms Gastrointestinal: Reports: No Symptoms Genitourinary: Reports: No Symptoms Musculoskeletal: Reports: Leg Pain, Joint Pain, Joint Swelling Skin: Reports: No Symptoms Psychiatric: Reports: No Symptoms Neurological: Reports: No Symptoms Hematologic/Lymphatic: Reports: No Symptoms Exam - Exam Exam: See Below - Vital Signs Vital Signs: Last Vital Signs Temp 36.7 C 10/15/19 03:45 Pulse 71 10/15/19 03:45 Resp 16 10/15/19 03:45 BP 131/78 10/15/19 03:45 Pulse Ox 91 L 10/15/19 03:45 Weight: 127.006 kg - Exam General: Alert, Oriented, Cooperative, Moderate Distress HEENT: Conjunctiva Clear, EOMI, Hearing Intact, Mucosa Moist & [place], Pupils Equal, Pupils Reactive Neck: Supple, Trachea Midline Lungs: Normal Respiratory Effort Extremities: Joint Swelling, Leg Pain, Limited Range of Motion Peripheral Pulses: 2+: Dorsalis Pedis (L), Dorsalis Pedis (R) Skin: Warm, Dry, Intact Neuro Extensive - Mental Status: Alert, Oriented x3, Normal Mood/Affect, Normal Cognition, Memory Intact Psychiatric: Alert, Normal Affect, Normal Mood - Patient Data Lab Results Last 24 hrs: Laboratory Results - last 24 hr 10/14/19 10/14/19 10/14/19 Range/Units 12:20 12:20 12:20 WBC 6.10 (4.0-11.0) K/uL RBC 4.60 (4.50-5.90) M/uL Hgb 13.6 (13.0-17.0) g/dL Hct 39.9 (38.0-50.0) % MCV 86.7 (80.0-98.0) fL MCH 29.6 (27.0-32.0) pg MCHC 34.1 (31.0-37.0) g/dL RDW Std Deviation 42.8 (28.0-62.0) fl RDW Coeff of Lisa 14 (11.0-15.0) % Plt Count 143 L (150-400) K/uL MPV 9.80 (7.40-12.00) fL Neut % (Auto) 78.5 (48.0-80.0) % Lymph % (Auto) 11.6 L (16.0-40.0) % [place] % (Auto) 8.4 (0.0-15.0) % Eos % (Auto) 1.3 (0.0-7.0) % Baso % (Auto) 0.2 (0.0-1.5) % Neut # (Auto) 4.8 (1.4-5.7) K/uL Lymph # (Auto) 0.7 (0.6-2.4) K/uL [place] # (Auto) 0.5 (0.0-0.8) K/uL Eos # (Auto) 0.1 (0.0-0.7) K/uL Baso # (Auto) 0.0 (0.0-0.1) K/uL Nucleated RBC % 0.0 /100WBC Nucleated RBCs # 0 K/uL INR 1.02 Sodium 140 (136-148) mmol/L Potassium 3.9 (3.5-5.1) mmol/L Chloride 105 (98-107) mmol/L Carbon Dioxide 26.6 (21.0-32.0) mmol/L BUN 17 (7.0-18.0) mg/dL Creatinine 1.0 (0.8-1.3) mg/dL Est Cr Clr Drug Dosing 73.24 mL/min Estimated GFR (MDRD) > 60.0 ml/min Glucose 275 H (74-106) mg/dL POC Glucose (60-110) mg/dL Hemoglobin A1c (4.5-6.2) % Calcium 8.6 (8.5-10.1) mg/dL Total Bilirubin 0.4 (0.2-1.0) mg/dL AST 15 (15-37) IU/L ALT 20 (14-63) IU/L Alkaline Phosphatase 112 (46-116) U/L Troponin I < 0.050 (0.000-0.056) ng/mL Total Protein 6.4 (6.4-8.2) g/dL Albumin 2.8 L (3.4-5.0) g/dL Globulin 3.6 (2.6-4.0) g/dL Albumin/Globulin Ratio 0.8 L (0.9-1.6) Urine Color Urine Appearance Urine pH (5.0-8.0) Ur Specific [place] (1.001-1.035) Urine Protein (NEGATIVE) mg/dL Urine Glucose (UA) (NEGATIVE) mg/dL Urine Ketones (NEGATIVE) mg/dL Urine Occult Blood (NEGATIVE) Urine Nitrite (NEGATIVE) Urine Bilirubin (NEGATIVE) Urine Urobilinogen (<2.0) EU/dL Ur Leukocyte Esterase (NEGATIVE) Urine RBC (0-2/HPF) Urine WBC (0-5/HPF) Ur Epithelial Cells (NONE-FEW) Urine Bacteria (NEGATIVE) Urine Mucus (NONE-MOD) 10/14/19 10/14/19 10/14/19 Range/Units 19:53 20:51 23:53 WBC (4.0-11.0) K/uL RBC (4.50-5.90) M/uL Hgb (13.0-17.0) g/dL Hct (38.0-50.0) % MCV (80.0-98.0) fL MCH (27.0-32.0) pg MCHC (31.0-37.0) g/dL RDW Std Deviation (28.0-62.0) fl RDW Coeff of Lisa (11.0-15.0) % Plt Count (150-400) K/uL MPV (7.40-12.00) fL Neut % (Auto) (48.0-80.0) % Lymph % (Auto) (16.0-40.0) % [place] % (Auto) (0.0-15.0) % Eos % (Auto) (0.0-7.0) % Baso % (Auto) (0.0-1.5) % Neut # (Auto) (1.4-5.7) K/uL Lymph # (Auto) (0.6-2.4) K/uL [place] # (Auto) (0.0-0.8) K/uL Eos # (Auto) (0.0-0.7) K/uL Baso # (Auto) (0.0-0.1) K/uL Nucleated RBC % /100WBC Nucleated RBCs # K/uL INR Sodium (136-148) mmol/L Potassium (3.5-5.1) mmol/L Chloride (98-107) mmol/L Carbon Dioxide (21.0-32.0) mmol/L BUN (7.0-18.0) mg/dL Creatinine (0.8-1.3) mg/dL Est Cr Clr Drug Dosing mL/min Estimated GFR (MDRD) ml/min Glucose (74-106) mg/dL POC Glucose 247 H 262 H (60-110) mg/dL Hemoglobin A1c (4.5-6.2) % Calcium (8.5-10.1) mg/dL Total Bilirubin (0.2-1.0) mg/dL AST (15-37) IU/L ALT (14-63) IU/L Alkaline Phosphatase (46-116) U/L Troponin I (0.000-0.056) ng/mL Total Protein (6.4-8.2) g/dL Albumin (3.4-5.0) g/dL Globulin (2.6-4.0) g/dL Albumin/Globulin Ratio (0.9-1.6) Urine Color YELLOW Urine Appearance CLEAR Urine pH 6.0 (5.0-8.0) Ur Specific [place] >= 1.030 (1.001-1.035) Urine Protein 30 H (NEGATIVE) mg/dL Urine Glucose (UA) 500 H (NEGATIVE) mg/dL Urine Ketones NEGATIVE (NEGATIVE) mg/dL Urine Occult Blood MODERATE H (NEGATIVE) Urine Nitrite NEGATIVE (NEGATIVE) Urine Bilirubin NEGATIVE (NEGATIVE) Urine Urobilinogen 1.0 (<2.0) EU/dL Ur Leukocyte Esterase NEGATIVE (NEGATIVE) Urine RBC 6-8 (0-2/HPF) Urine WBC 0-2 (0-5/HPF) Ur Epithelial Cells OCCASIONAL (NONE-FEW) Urine Bacteria FEW (NEGATIVE) Urine Mucus FEW (NONE-MOD) 10/15/19 10/15/19 10/15/19 Range/Units 06:20 06:20 06:20 WBC 5.67 (4.0-11.0) K/uL RBC 4.34 L (4.50-5.90) M/uL Hgb 12.8 L (13.0-17.0) g/dL Hct 38.3 (38.0-50.0) % MCV 88.2 (80.0-98.0) fL MCH 29.5 (27.0-32.0) pg MCHC 33.4 (31.0-37.0) g/dL RDW Std Deviation 45.4 (28.0-62.0) fl RDW Coeff of Lisa 14 (11.0-15.0) % Plt Count 122 L (150-400) K/uL MPV 9.80 (7.40-12.00) fL Neut % (Auto) 72.8 (48.0-80.0) % Lymph % (Auto) 15.0 L (16.0-40.0) % [place] % (Auto) 9.0 (0.0-15.0) % Eos % (Auto) 2.8 (0.0-7.0) % Baso % (Auto) 0.4 (0.0-1.5) % Neut # (Auto) 4.1 (1.4-5.7) K/uL Lymph # (Auto) 0.9 (0.6-2.4) K/uL [place] # (Auto) 0.5 (0.0-0.8) K/uL Eos # (Auto) 0.2 (0.0-0.7) K/uL Baso # (Auto) 0.0 (0.0-0.1) K/uL Nucleated RBC % 0.0 /100WBC Nucleated RBCs # 0 K/uL INR 1.05 Sodium 139 (136-148) mmol/L Potassium 4.4 (3.5-5.1) mmol/L Chloride 104 (98-107) mmol/L Carbon Dioxide 28.7 (21.0-32.0) mmol/L BUN 15 (7.0-18.0) mg/dL Creatinine 1.0 (0.8-1.3) mg/dL Est Cr Clr Drug Dosing 73.24 mL/min Estimated GFR (MDRD) > 60.0 ml/min Glucose 225 H (74-106) mg/dL POC Glucose (60-110) mg/dL Hemoglobin A1c (4.5-6.2) % Calcium 8.5 (8.5-10.1) mg/dL Total Bilirubin (0.2-1.0) mg/dL AST (15-37) IU/L ALT (14-63) IU/L Alkaline Phosphatase (46-116) U/L Troponin I (0.000-0.056) ng/mL Total Protein (6.4-8.2) g/dL Albumin (3.4-5.0) g/dL Globulin (2.6-4.0) g/dL Albumin/Globulin Ratio (0.9-1.6) Urine Color Urine Appearance Urine pH (5.0-8.0) Ur Specific [place] (1.001-1.035) Urine Protein (NEGATIVE) mg/dL Urine Glucose (UA) (NEGATIVE) mg/dL Urine Ketones (NEGATIVE) mg/dL Urine Occult Blood (NEGATIVE) Urine Nitrite (NEGATIVE) Urine Bilirubin (NEGATIVE) Urine Urobilinogen (<2.0) EU/dL Ur Leukocyte Esterase (NEGATIVE) Urine RBC (0-2/HPF) Urine WBC (0-5/HPF) Ur Epithelial Cells (NONE-FEW) Urine Bacteria (NEGATIVE) Urine Mucus (NONE-MOD) 10/15/19 10/15/19 Range/Units 06:20 06:30 WBC (4.0-11.0) K/uL RBC (4.50-5.90) M/uL Hgb (13.0-17.0) g/dL Hct (38.0-50.0) % MCV (80.0-98.0) fL MCH (27.0-32.0) pg MCHC (31.0-37.0) g/dL RDW Std Deviation (28.0-62.0) fl RDW Coeff of Lisa (11.0-15.0) % Plt Count (150-400) K/uL MPV (7.40-12.00) fL Neut % (Auto) (48.0-80.0) % Lymph % (Auto) (16.0-40.0) % [place] % (Auto) (0.0-15.0) % Eos % (Auto) (0.0-7.0) % Baso % (Auto) (0.0-1.5) % Neut # (Auto) (1.4-5.7) K/uL Lymph # (Auto) (0.6-2.4) K/uL [place] # (Auto) (0.0-0.8) K/uL Eos # (Auto) (0.0-0.7) K/uL Baso # (Auto) (0.0-0.1) K/uL Nucleated RBC % /100WBC Nucleated RBCs # K/uL INR Sodium (136-148) mmol/L Potassium (3.5-5.1) mmol/L Chloride (98-107) mmol/L Carbon Dioxide (21.0-32.0) mmol/L BUN (7.0-18.0) mg/dL Creatinine (0.8-1.3) mg/dL Est Cr Clr Drug Dosing mL/min Estimated GFR (MDRD) ml/min Glucose (74-106) mg/dL POC Glucose 207 H (60-110) mg/dL Hemoglobin A1c 12.3 H (4.5-6.2) % Calcium (8.5-10.1) mg/dL Total Bilirubin (0.2-1.0) mg/dL AST (15-37) IU/L ALT (14-63) IU/L Alkaline Phosphatase (46-116) U/L Troponin I (0.000-0.056) ng/mL Total Protein (6.4-8.2) g/dL Albumin (3.4-5.0) g/dL Globulin (2.6-4.0) g/dL Albumin/Globulin Ratio (0.9-1.6) Urine Color Urine Appearance Urine pH (5.0-8.0) Ur Specific [place] (1.001-1.035) Urine Protein (NEGATIVE) mg/dL Urine Glucose (UA) (NEGATIVE) mg/dL Urine Ketones (NEGATIVE) mg/dL Urine Occult Blood (NEGATIVE) Urine Nitrite (NEGATIVE) Urine Bilirubin (NEGATIVE) Urine Urobilinogen (<2.0) EU/dL Ur Leukocyte Esterase (NEGATIVE) Urine RBC (0-2/HPF) Urine WBC (0-5/HPF) Ur Epithelial Cells (NONE-FEW) Urine Bacteria (NEGATIVE) Urine Mucus (NONE-MOD) Result Diagrams: 10/15/19 06:20 10/15/19 06:20 Sepsis Event Note - Evaluation Sepsis Screening Result: No Definite Risk - Focused Exam Vital Signs: Vital Signs Temp Pulse Resp BP Pulse Ox 10/15/19 03:45 36.7 C 71 16 131/78 91 L 10/15/19 00:05 36.5 C 77 16 122/60 91 L 10/14/19 20:00 36.4 C 78 18 131/63 93 L Date Exam was Performed: 10/15/19 Time Exam was Performed: 07:13 - Problem List (1) Hip fracture SNOMED Code(s): 049058354 ICD Code: S72.009A - FRACTURE OF UNSP PART OF NECK OF UNSP FEMUR, INIT Status: Acute Current Visit: Yes Qualifiers: Encounter type: initial encounter Fracture type: closed Laterality: right Qualified Code(s): S72.001A - Fracture of unspecified part of neck of right femur, initial encounter for closed fracture Problem List Initiated/Reviewed/Updated: Yes Orders Last 24hrs: Active Orders 24 hr Category Date Time Status Admission Status [Patient Status] [ADT] Stat ADT 10/14/19 17:22 Active Antiembolic Devices [RC] PER UNIT ROUTINE Care 10/14/19 18:02 Active Blood Glucose Check, Bedside [RC[facility] 10/14/19 18:59 Active EKG Documentation Completion [RC] STAT Care 10/14/19 12:18 Active Insert Urinary Catheter [OM.PC] Q24H Care 10/14/19 18:15 Ordered Notify Provider Consults [RC] ASDIRECTED Care 10/14/19 15:04 Active Notify Provider Consults [RC] ASDIRECTED Care 10/14/19 18:07 Active RT Aerosol Therapy [RC] ASDIRECTED Care 10/14/19 18:59 Active Telemetry Monitoring [Cardiac Monitoring] [RC] Q8H Care 10/14/19 18:59 Active Urinary Catheter Assessment [RC] ASDIRECTED Care 10/14/19 18:02 Active Consult to Physician [CONS] Stat Cons 10/14/19 15:02 Active Consult to Physician [CONS] Stat Cons 10/14/19 18:04 Active ADA Diabetic [[place]izen [place] [employer] Diet] [DIET Diet 10/14/19 Dinner Active ] Acetaminophen [Tylenol] Med 10/14/19 18:59 Active 650 mg PO Q4H PRN Acetaminophen/HYDROcodone [[place] 325-5 MG] Med 10/14/19 18:01 Active 1 - 2 tab PO Q4H PRN Albuterol/Ipratropium [DuoNeb 3.0-0.5 MG/3 ML] Med 10/14/19 18:59 Active 3 ml NEB Q4HRRT PRN HYDROmorphone [Dilaudid] Med 10/14/19 18:59 Active 1 mg IVPUSH Q4H PRN Insulin Aspart [NovoLOG] Med 10/14/19 21:00 Active See Protocol SUBCUT WITHMEALSANDBED Insulin Detemir [Levemir] Med 10/14/19 21:00 Active 60 unit SUBCUT BEDTIME Insulin Detemir [Levemir] Med 10/15/19 07:30 Active 80 unit SUBCUT ACBREAKFAST Lactated Ringers [Ringers, Lactated] 1,000 ml Med 10/14/19 19:00 Active IV ASDIRECTED Ondansetron [Zofran] Med 10/14/19 18:59 Active 4 mg IVPUSH Q4H PRN Obtain Home Medication List [OM.PC] Routine Oth 10/14/19 18:01 Ordered Sequential Compression Device [OM.PC] Routine Oth 10/14/19 18:01 Ordered Code Status [Resuscitation Status] Routine Resus Stat 10/14/19 18:01 Ordered Medication Orders Acetaminophen (Tylenol) 650 mg PO Q4H PRN PRN Reason: Pain/Fever Hydrocodone Bitart/Acetaminophen ([place] 325-5 Mg) 1 - 2 tab PO Q4H PRN PRN Reason: Pain Last Admin: 10/14/19 21:56 Dose: 1 tab Albuterol/Ipratropium (Duoneb 3.0-0.5 Mg/3 Ml) 3 ml NEB Q4HRRT PRN PRN Reason: Shortness of Breath Hydromorphone HCl (Dilaudid) 1 mg IVPUSH Q4H PRN PRN Reason: Pain (severe 7-10) Last Admin: 10/15/19 04:42 Dose: 1 mg Admin: 10/15/19 00:07 Dose: 1 mg Lactated Ringer's (Ringers, Lactated) 1,000 mls @ 100 mls/hr IV ASDIRECTED [facility] Last Admin: 10/14/19 21:23 Dose: 100 mls/hr Insulin Aspart (Novolog) 0 unit SUBCUT WITHMEALSANDBED [facility]; Protocol Last Admin: 10/14/19 20:52 Dose: 4 unit Insulin Detemir (Levemir) 60 unit SUBCUT BEDTIME [facility] Last Admin: 10/14/19 20:54 Dose: 60 unit Insulin Detemir (Levemir) 80 unit SUBCUT ACBREAKFAST [facility] Ondansetron HCl (Zofran) 4 mg IVPUSH Q4H PRN PRN Reason: Nausea/Vomiting Assessment/Plan Comment:: Patient in ER evaluated. On eloquis for atrial fibrillation. unable to peform surgery until Sunday/Sunday. [facility] refused to accept. Dr. Rutherofrd and Denys Hernandez in [place] accepted at [facility]. Will transfer 10/15/19. Family aware. - Mortality Measure Prognosis:: Good
--- NOTE | 2019-10-15 07:23 | PCM.DCSUM1 ---
Discharge Summary - Hospital Course HPI Initial Comments: 74 yo male fell, right femoral neck fracture, closed. admitted until transfer to [place] today Diagnosis: Stroke: No - Discharge Data Discharge Date: 10/15/19 Discharge Disposition: DC/Tfer to Acute Hospital 02 Condition: Fair - Referral to Home Health Primary Care Physician: PCP Not In Area - Discharge Diagnosis/Problem(s) (1) Hip fracture SNOMED Code(s): 460250171 ICD Code: S72.009A - FRACTURE OF UNSP PART OF NECK OF UNSP FEMUR, INIT Status: Acute Current Visit: Yes Qualifiers: Encounter type: initial encounter Fracture type: closed Laterality: right Qualified Code(s): S72.001A - Fracture of unspecified part of neck of right femur, initial encounter for closed fracture - Patient Summary/Data Consults: Consultations 10/14/19 15:02 Consult to Physician [CONS] Stat 10/14/19 18:04 Consult to Physician [CONS] Stat - Patient Instructions Diet: Regular Diet as Tolerated Activity: Apply Ice, As Tolerated, Bedrest, Non Weight Bearing Driving: Do Not Drive Notify Provider of: Fever, Increased Pain, Swelling and Redness, Drainage, Nausea and/or Vomiting - Discharge Plan *PRESCRIPTION DRUG MONITORING PROGRAM REVIEWED*: Not Applicable *COPY OF PRESCRIPTION DRUG MONITORING REPORT IN PATIENT [place]: Not Applicable Prescriptions/Med Rec: Hydrocodone/Acetaminophen [Hydrocodon-Acetaminophen 5-300] 1 each PO QID PRN # 28 tablet PRN Reason: Pain Home Medications: Home Meds Insulin Aspart [NovoLOG] 10 units INJECT BEDTIME 10/14/19 [History] Insulin Aspart [NovoLOG] 15 units INJECT ACBREAKFAST 10/14/19 [History] Insulin Detemir [Levemir] 60 units INJECT BEDTIME 10/14/19 [History] Insulin Detemir [Levemir] 80 unit INJECT ACBREAKFAST 10/14/19 [History] Hydrocodone/Acetaminophen [Hydrocodon-Acetaminophen 5-300] 1 each PO QID PRN # 28 tablet 10/15/19 [Rx] Forms: ED Department Discharge Referrals: PCP,Not In Area [Primary Care Provider] - - Discharge Summary/Plan Comment DC Time >30 min.: No - General Info Date of Service: 10/15/19 Admission Dx/Problem (Free Text: Admission Diagnosis/Problem Admission Diagnosis/Problem Fracture of proximal end of femur Functional Status: Reports: Pain Controlled, Tolerating Diet - Review of Systems General: Reports: No Symptoms HEENT: Reports: No Symptoms Pulmonary: Reports: No Symptoms Cardiovascular: Reports: No Symptoms Gastrointestinal: Reports: No Symptoms Genitourinary: Reports: No Symptoms Musculoskeletal: Reports: Leg Pain, Joint Pain, Joint Swelling Skin: Reports: No Symptoms Neurological: Reports: No Symptoms Psychiatric: Reports: No Symptoms - Patient Data Vitals - Most Recent: Last Vital Signs Temp 36.7 C 10/15/19 03:45 Pulse 71 10/15/19 03:45 Resp 16 10/15/19 03:45 BP 131/78 10/15/19 03:45 Pulse Ox 91 L 10/15/19 03:45 Weight - Most Recent: 127.006 kg I&O - Last 24 hours: Intake & Output 10/14/19 10/15/19 10/15/19 22:59 06:59 14:59 Intake Total 1052 Output Total 600 Balance 452 Lab Results - Last 24 hrs: Laboratory Results - last 24 hr 10/14/19 10/14/19 10/14/19 Range/Units 12:20 12:20 12:20 WBC 6.10 (4.0-11.0) K/uL RBC 4.60 (4.50-5.90) M/uL Hgb 13.6 (13.0-17.0) g/dL Hct 39.9 (38.0-50.0) % MCV 86.7 (80.0-98.0) fL MCH 29.6 (27.0-32.0) pg MCHC 34.1 (31.0-37.0) g/dL RDW Std Deviation 42.8 (28.0-62.0) fl RDW Coeff of Lisa 14 (11.0-15.0) % Plt Count 143 L (150-400) K/uL MPV 9.80 (7.40-12.00) fL Neut % (Auto) 78.5 (48.0-80.0) % Lymph % (Auto) 11.6 L (16.0-40.0) % [place] % (Auto) 8.4 (0.0-15.0) % Eos % (Auto) 1.3 (0.0-7.0) % Baso % (Auto) 0.2 (0.0-1.5) % Neut # (Auto) 4.8 (1.4-5.7) K/uL Lymph # (Auto) 0.7 (0.6-2.4) K/uL [place] # (Auto) 0.5 (0.0-0.8) K/uL Eos # (Auto) 0.1 (0.0-0.7) K/uL Baso # (Auto) 0.0 (0.0-0.1) K/uL Nucleated RBC % 0.0 /100WBC Nucleated RBCs # 0 K/uL INR 1.02 Sodium 140 (136-148) mmol/L Potassium 3.9 (3.5-5.1) mmol/L Chloride 105 (98-107) mmol/L Carbon Dioxide 26.6 (21.0-32.0) mmol/L BUN 17 (7.0-18.0) mg/dL Creatinine 1.0 (0.8-1.3) mg/dL Est Cr Clr Drug Dosing 73.24 mL/min Estimated GFR (MDRD) > 60.0 ml/min Glucose 275 H (74-106) mg/dL POC Glucose (60-110) mg/dL Hemoglobin A1c (4.5-6.2) % Calcium 8.6 (8.5-10.1) mg/dL Total Bilirubin 0.4 (0.2-1.0) mg/dL AST 15 (15-37) IU/L ALT 20 (14-63) IU/L Alkaline Phosphatase 112 (46-116) U/L Troponin I < 0.050 (0.000-0.056) ng/mL Total Protein 6.4 (6.4-8.2) g/dL Albumin 2.8 L (3.4-5.0) g/dL Globulin 3.6 (2.6-4.0) g/dL Albumin/Globulin Ratio 0.8 L (0.9-1.6) Urine Color Urine Appearance Urine pH (5.0-8.0) Ur Specific [place] (1.001-1.035) Urine Protein (NEGATIVE) mg/dL Urine Glucose (UA) (NEGATIVE) mg/dL Urine Ketones (NEGATIVE) mg/dL Urine Occult Blood (NEGATIVE) Urine Nitrite (NEGATIVE) Urine Bilirubin (NEGATIVE) Urine Urobilinogen (<2.0) EU/dL Ur Leukocyte Esterase (NEGATIVE) Urine RBC (0-2/HPF) Urine WBC (0-5/HPF) Ur Epithelial Cells (NONE-FEW) Urine Bacteria (NEGATIVE) Urine Mucus (NONE-MOD) 10/14/19 10/14/19 10/14/19 Range/Units 19:53 20:51 23:53 WBC (4.0-11.0) K/uL RBC (4.50-5.90) M/uL Hgb (13.0-17.0) g/dL Hct (38.0-50.0) % MCV (80.0-98.0) fL MCH (27.0-32.0) pg MCHC (31.0-37.0) g/dL RDW Std Deviation (28.0-62.0) fl RDW Coeff of Lisa (11.0-15.0) % Plt Count (150-400) K/uL MPV (7.40-12.00) fL Neut % (Auto) (48.0-80.0) % Lymph % (Auto) (16.0-40.0) % [place] % (Auto) (0.0-15.0) % Eos % (Auto) (0.0-7.0) % Baso % (Auto) (0.0-1.5) % Neut # (Auto) (1.4-5.7) K/uL Lymph # (Auto) (0.6-2.4) K/uL [place] # (Auto) (0.0-0.8) K/uL Eos # (Auto) (0.0-0.7) K/uL Baso # (Auto) (0.0-0.1) K/uL Nucleated RBC % /100WBC Nucleated RBCs # K/uL INR Sodium (136-148) mmol/L Potassium (3.5-5.1) mmol/L Chloride (98-107) mmol/L Carbon Dioxide (21.0-32.0) mmol/L BUN (7.0-18.0) mg/dL Creatinine (0.8-1.3) mg/dL Est Cr Clr Drug Dosing mL/min Estimated GFR (MDRD) ml/min Glucose (74-106) mg/dL POC Glucose 247 H 262 H (60-110) mg/dL Hemoglobin A1c (4.5-6.2) % Calcium (8.5-10.1) mg/dL Total Bilirubin (0.2-1.0) mg/dL AST (15-37) IU/L ALT (14-63) IU/L Alkaline Phosphatase (46-116) U/L Troponin I (0.000-0.056) ng/mL Total Protein (6.4-8.2) g/dL Albumin (3.4-5.0) g/dL Globulin (2.6-4.0) g/dL Albumin/Globulin Ratio (0.9-1.6) Urine Color YELLOW Urine Appearance CLEAR Urine pH 6.0 (5.0-8.0) Ur Specific [place] >= 1.030 (1.001-1.035) Urine Protein 30 H (NEGATIVE) mg/dL Urine Glucose (UA) 500 H (NEGATIVE) mg/dL Urine Ketones NEGATIVE (NEGATIVE) mg/dL Urine Occult Blood MODERATE H (NEGATIVE) Urine Nitrite NEGATIVE (NEGATIVE) Urine Bilirubin NEGATIVE (NEGATIVE) Urine Urobilinogen 1.0 (<2.0) EU/dL Ur Leukocyte Esterase NEGATIVE (NEGATIVE) Urine RBC 6-8 (0-2/HPF) Urine WBC 0-2 (0-5/HPF) Ur Epithelial Cells OCCASIONAL (NONE-FEW) Urine Bacteria FEW (NEGATIVE) Urine Mucus FEW (NONE-MOD) 10/15/19 10/15/19 10/15/19 Range/Units 06:20 06:20 06:20 WBC 5.67 (4.0-11.0) K/uL RBC 4.34 L (4.50-5.90) M/uL Hgb 12.8 L (13.0-17.0) g/dL Hct 38.3 (38.0-50.0) % MCV 88.2 (80.0-98.0) fL MCH 29.5 (27.0-32.0) pg MCHC 33.4 (31.0-37.0) g/dL RDW Std Deviation 45.4 (28.0-62.0) fl RDW Coeff of Lisa 14 (11.0-15.0) % Plt Count 122 L (150-400) K/uL MPV 9.80 (7.40-12.00) fL Neut % (Auto) 72.8 (48.0-80.0) % Lymph % (Auto) 15.0 L (16.0-40.0) % [place] % (Auto) 9.0 (0.0-15.0) % Eos % (Auto) 2.8 (0.0-7.0) % Baso % (Auto) 0.4 (0.0-1.5) % Neut # (Auto) 4.1 (1.4-5.7) K/uL Lymph # (Auto) 0.9 (0.6-2.4) K/uL [place] # (Auto) 0.5 (0.0-0.8) K/uL Eos # (Auto) 0.2 (0.0-0.7) K/uL Baso # (Auto) 0.0 (0.0-0.1) K/uL Nucleated RBC % 0.0 /100WBC Nucleated RBCs # 0 K/uL INR 1.05 Sodium 139 (136-148) mmol/L Potassium 4.4 (3.5-5.1) mmol/L Chloride 104 (98-107) mmol/L Carbon Dioxide 28.7 (21.0-32.0) mmol/L BUN 15 (7.0-18.0) mg/dL Creatinine 1.0 (0.8-1.3) mg/dL Est Cr Clr Drug Dosing 73.24 mL/min Estimated GFR (MDRD) > 60.0 ml/min Glucose 225 H (74-106) mg/dL POC Glucose (60-110) mg/dL Hemoglobin A1c (4.5-6.2) % Calcium 8.5 (8.5-10.1) mg/dL Total Bilirubin (0.2-1.0) mg/dL AST (15-37) IU/L ALT (14-63) IU/L Alkaline Phosphatase (46-116) U/L Troponin I (0.000-0.056) ng/mL Total Protein (6.4-8.2) g/dL Albumin (3.4-5.0) g/dL Globulin (2.6-4.0) g/dL Albumin/Globulin Ratio (0.9-1.6) Urine Color Urine Appearance Urine pH (5.0-8.0) Ur Specific [place] (1.001-1.035) Urine Protein (NEGATIVE) mg/dL Urine Glucose (UA) (NEGATIVE) mg/dL Urine Ketones (NEGATIVE) mg/dL Urine Occult Blood (NEGATIVE) Urine Nitrite (NEGATIVE) Urine Bilirubin (NEGATIVE) Urine Urobilinogen (<2.0) EU/dL Ur Leukocyte Esterase (NEGATIVE) Urine RBC (0-2/HPF) Urine WBC (0-5/HPF) Ur Epithelial Cells (NONE-FEW) Urine Bacteria (NEGATIVE) Urine Mucus (NONE-MOD) 10/15/19 10/15/19 Range/Units 06:20 06:30 WBC (4.0-11.0) K/uL RBC (4.50-5.90) M/uL Hgb (13.0-17.0) g/dL Hct (38.0-50.0) % MCV (80.0-98.0) fL MCH (27.0-32.0) pg MCHC (31.0-37.0) g/dL RDW Std Deviation (28.0-62.0) fl RDW Coeff of Lisa (11.0-15.0) % Plt Count (150-400) K/uL MPV (7.40-12.00) fL Neut % (Auto) (48.0-80.0) % Lymph % (Auto) (16.0-40.0) % [place] % (Auto) (0.0-15.0) % Eos % (Auto) (0.0-7.0) % Baso % (Auto) (0.0-1.5) % Neut # (Auto) (1.4-5.7) K/uL Lymph # (Auto) (0.6-2.4) K/uL [place] # (Auto) (0.0-0.8) K/uL Eos # (Auto) (0.0-0.7) K/uL Baso # (Auto) (0.0-0.1) K/uL Nucleated RBC % /100WBC Nucleated RBCs # K/uL INR Sodium (136-148) mmol/L Potassium (3.5-5.1) mmol/L Chloride (98-107) mmol/L Carbon Dioxide (21.0-32.0) mmol/L BUN (7.0-18.0) mg/dL Creatinine (0.8-1.3) mg/dL Est Cr Clr Drug Dosing mL/min Estimated GFR (MDRD) ml/min Glucose (74-106) mg/dL POC Glucose 207 H (60-110) mg/dL Hemoglobin A1c 12.3 H (4.5-6.2) % Calcium (8.5-10.1) mg/dL Total Bilirubin (0.2-1.0) mg/dL AST (15-37) IU/L ALT (14-63) IU/L Alkaline Phosphatase (46-116) U/L Troponin I (0.000-0.056) ng/mL Total Protein (6.4-8.2) g/dL Albumin (3.4-5.0) g/dL Globulin (2.6-4.0) g/dL Albumin/Globulin Ratio (0.9-1.6) Urine Color Urine Appearance Urine pH (5.0-8.0) Ur Specific [place] (1.001-1.035) Urine Protein (NEGATIVE) mg/dL Urine Glucose (UA) (NEGATIVE) mg/dL Urine Ketones (NEGATIVE) mg/dL Urine Occult Blood (NEGATIVE) Urine Nitrite (NEGATIVE) Urine Bilirubin (NEGATIVE) Urine Urobilinogen (<2.0) EU/dL Ur Leukocyte Esterase (NEGATIVE) Urine RBC (0-2/HPF) Urine WBC (0-5/HPF) Ur Epithelial Cells (NONE-FEW) Urine Bacteria (NEGATIVE) Urine Mucus (NONE-MOD) Med Orders - Current: Current Medications Acetaminophen (Tylenol) 650 mg PO Q4H PRN PRN Reason: Pain/Fever Hydrocodone Bitart/Acetaminophen ([place] 325-5 Mg) 1 - 2 tab PO Q4H PRN PRN Reason: Pain Last Admin: 10/14/19 21:56 Dose: 1 tab Albuterol/Ipratropium (Duoneb 3.0-0.5 Mg/3 Ml) 3 ml NEB Q4HRRT PRN PRN Reason: Shortness of Breath Hydromorphone HCl (Dilaudid) 1 mg IVPUSH Q4H PRN PRN Reason: Pain (severe 7-10) Last Admin: 10/15/19 04:42 Dose: 1 mg Lactated Ringer's (Ringers, Lactated) 1,000 mls @ 100 mls/hr IV ASDIRECTED [facility] Last Admin: 10/15/19 07:16 Dose: 100 mls/hr Insulin Aspart (Novolog) 0 unit SUBCUT WITHMEALSANDBED [facility]; Protocol Last Admin: 10/14/19 20:52 Dose: 4 unit Insulin Detemir (Levemir) 60 unit SUBCUT BEDTIME [facility] Last Admin: 10/14/19 20:54 Dose: 60 unit Insulin Detemir (Levemir) 80 unit SUBCUT ACBREAKFAST [facility] Ondansetron HCl (Zofran) 4 mg IVPUSH Q4H PRN PRN Reason: Nausea/Vomiting Discontinued Medications Hydrocodone Bitart/Acetaminophen ([place] 325-5 Mg) 2 tab PO ONETIME ONE Stop: 10/14/19 17:38 Last Admin: 10/14/19 17:45 Dose: 2 tab Hydromorphone HCl (Dilaudid) 0.5 mg IVPUSH ONETIME ONE Stop: 10/14/19 13:38 Last Admin: 10/14/19 13:50 Dose: 0.5 mg Hydromorphone HCl (Dilaudid) 1 mg IVPUSH ONETIME ONE Stop: 10/14/19 15:39 Last Admin: 10/14/19 15:49 Dose: 1 mg Sodium Chloride (Normal Saline) 1,000 mls @ 100 mls/hr IV STAT [facility] Last Admin: 10/14/19 13:49 Dose: 100 mls/hr Morphine Sulfate (Morphine) 2 mg IVPUSH ONETIME ONE Stop: 10/14/19 12:36 Last Admin: 10/14/19 12:39 Dose: 2 mg Ondansetron HCl (Zofran) 4 mg IVPUSH ONETIME ONE Stop: 10/14/19 13:53 Last Admin: 10/14/19 13:56 Dose: 4 mg - Exam General: Reports: Alert, Oriented, Cooperative, Moderate Distress HEENT: Reports: Pupils Equal, Pupils Reactive, EOMI, Mucous Membr. Moist/[place] Neck: Reports: Supple, Trachea Midline Lungs: Reports: Normal Respiratory Effort Extremities: Leg Pain, Limited Range of Motion Skin: Reports: Warm, Dry, Intact Wound/Incisions: Reports: Healing Well Neurological: Reports: No New Focal Deficit Psy/Mental Status: Reports: Alert, Normal Affect, Normal Mood
[2019-10-15] MEDS ORDERED: Insulin Detemir 100 Units/ML 3 ML Pen SUBCUT SCH (07:30)
[2019-10-15 07:54] VITALS: BP 139/67; PULSE 70
[2019-10-15] MEDS: Insulin Aspart 100 Units/ML 3 ML Pen SUBCUT SCH (08:48)
== END 2019-10-15 08:45 ==
LOC: MW.ED 12:09 → MW.MS 18:07
PROVIDERS: ADMIT Orthopaedic Surgery; ATTEND Orthopaedic Surgery
DX: S72.011A Unspecified intracapsular fracture of right femur, initial encounter for closed fracture (principal); E11.9 Type 2 diabetes mellitus without complications; I25.10 Atherosclerotic heart disease of native coronary artery without angina pectoris; I48.91 Unspecified atrial fibrillation; D68.51 Activated protein C resistance; E78.00 Pure hypercholesterolemia, unspecified; M19.90 Unspecified osteoarthritis, unspecified site; W00.0XXA Fall on same level due to ice and snow, initial encounter; Z79.01 Long term (current) use of anticoagulants; Z79.4 Long term (current) use of insulin; Z86.718 Personal history of other venous thrombosis and embolism; Z95.5 Presence of coronary angioplasty implant and graft; Z86.73 Personal history of transient ischemic attack (TIA), and cerebral infarction without residual deficits
CPT/HCPCS: 36415; 51702; 70450; 71045; 72125; 73030; 73502; 80048; 80053; 81001; 82962; 83036; 84484; 85025; 85610; 93005; 96361; 96374; 96375; 96376; 99285; A9270; J1170; J1815; J2270; J2405; J7030; J7120; 99283; G0378

== ENCOUNTER 2020-02-08 16:29 | Emergency (ER) | payer MEDICARE, BC, OTHER ==
--- NOTE | 2020-02-08 17:01 | EDM.PDOC ---
ED HPI GENERAL MEDICAL PROBLEM - General Chief Complaint: Skin Complaint Stated Complaint: sick Time Seen by Provider: 02/08/20 16:43 Source of Information: Reports: Patient History Limitations: Reports: No Limitations - History of Present Illness INITIAL COMMENTS - FREE TEXT/NARRATIVE: 74-year-old male with history of diabetes, factor V Leiden on Eliquis presents with small painful lump at the back of his head that started 2 days ago. Denies fever, chills, neck pain, headache. He thought he might of been bitten by a tick or an insect. ROS: A 10-point review of systems, other than pertinent positives and negatives as stated per HPI, is otherwise negative PHYSICAL EXAM General: AOx4, GCS = 15, No distress HEENT: dry mucous membrane, 2 to 3 cm area of soft tissue swelling to the occiput with no induration or fluctuance, scabbed over on the surface. No drainage or surrounding erythema. Neck: supple, no meningismus, no Kernig or Brudzinski Cardiac: S1S2 RRR Respiratory: CTAB, no crackles or rales, no wheezing Abdomen: Soft, nontender, no rebound or guarding, nondistended, no pulsatile mass. Back: nontender Musculoskeletal: NVI distally, no deformity Neuro: No focal deficits, CN 2 - 12 WNL. MEDICAL DECISION MAKING: I reviewed the patients past medical records, lab and radiographic findings. I discussed the case with family members. My differential diagnosis included: Cellulitis, early abscess, folliculitis. No suspicion for hematoma. Patient's presentation today is consistent with an early abscess, too small for incision and drainage at this time given no induration or fluctuance. Will treat with oral antibiotics and asked patient for a return visit for recheck in 3 days. - Related Data Allergies Allergy/AdvReac Type Severity Reaction Status Date / Time No Known Allergies Allergy Verified 10/14/19 12:17 Home Meds: Home Meds Insulin Aspart [NovoLOG] 10 units INJECT BEDTIME 10/14/19 [History] Insulin Aspart [NovoLOG] 15 units INJECT ACBREAKFAST 10/14/19 [History] Insulin Detemir [Levemir] 60 units INJECT BEDTIME 10/14/19 [History] Insulin Detemir [Levemir] 80 unit INJECT ACBREAKFAST 10/14/19 [History] Hydrocodone/Acetaminophen [Hydrocodon-Acetaminophen 5-300] 1 each PO QID PRN # 28 tablet 10/15/19 [Rx] Sulfamethoxazole/Trimethoprim [Bactrim Ds Tablet] 2 each PO BID #28 tablet 02/07 [Rx] cephALEXin [Keflex] 500 mg PO Q8H #21 cap 02/08/20 [Rx] Past Medical History HEENT History: Reports: None Other HEENT History: 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 Cardiovascular History: Reports: Afib, Blood Clots/VTE/DVT, CAD, High Cholesterol, Stents Other Cardiovascular History: Had heart surgery last Sunday at [place] for total blockage Respiratory History: Reports: None Gastrointestinal History: Reports: None Genitourinary History: Reports: None Musculoskeletal History: Reports: Arthritis Other Musculoskeletal History: Knee Pain Neurological History: Reports: CVA Other Neuro History: left side paralysis 7 years ago Psychiatric History: Reports: None Endocrine/Metabolic History: Reports: Diabetes, Type II Hematologic History: Reports: Other (See Below) Other Hematologic History: factor five disorder Immunologic History: Reports: None Oncologic (Cancer) History: Reports: None Dermatologic History: Reports: None - Infectious Disease History Infectious Disease History: Reports: Measles - Past Surgical History HEENT Surgical History: Reports: Eye Surgery, Other (See Below) Cardiovascular Surgical History: Reports: Carotid Stents Musculoskeletal Surgical History: Reports: Other (See Below) Social & Family History - Family History Family Medical History: Noncontributory HEENT: Reports: None Cardiac: Reports: CAD, Heart Failure Respiratory: Reports: None GI: Reports: None - Caffeine Use Caffeine Use: Reports: Coffee Caffeine Use Comment: 6cups/day ED ROS GENERAL - Review of Systems Review Of Systems: See Below (SEE DICTATION) ED EXAM, SKIN/RASH Exam: See Below (see dictation) Course - Re-Assessments/Exams Free Text/Narrative Re-Assessment/Exam: 02/08/20 16:55 He is stable for discharge, he exhibits normal vital signs and has exhibited a normal gait. I advised the patient to return to the ER for reevaluation if symptoms worsened, and to follow up with their PCP Dr. Hernandez within 3 days for repeat wound check. Departure - Departure Time of Disposition: 16:55 Disposition: Home, Self-Care 01 Condition: Good Clinical Impression: Abscess - Discharge Information *PRESCRIPTION DRUG MONITORING PROGRAM REVIEWED*: Not Applicable *COPY OF PRESCRIPTION DRUG MONITORING REPORT IN PATIENT [place]: Not Applicable Prescriptions: cephALEXin [Keflex] 500 mg PO Q8H #21 cap Sulfamethoxazole/Trimethoprim [Bactrim Ds Tablet] 2 each PO BID #28 tablet Instructions: Skin Abscess Additional Instructions: The following information is given to patients seen in the emergency department who are being discharged to home. This information is to outline your options for follow-up care. We provide all patients seen in our emergency department with a follow-up referral. The need for follow-up, as well as the timing and circumstances, are variable depending upon the specifics of your emergency department visit. If you don't have a primary care physician on staff, we will provide you with a referral. We always advise you to contact your personal physician following an emergency department visit to inform them of the circumstance of the visit and for follow-up with them and/or the need for any referrals to a consulting specialist. The emergency department will also refer you to a specialist when appropriate. This referral assures that you have the opportunity for follow-up care with a specialist. All of these measure are taken in an effort to provide you with optimal care, which includes your follow-up. Under all circumstances we always encourage you to contact your private physician who remains a resource for coordinating your care. When calling for follow-up care, please make the office aware that this follow-up is from your recent emergency room visit. If for any reason you are refused follow-up, please contact the [facility] Emergency Department at and asked to speak to the emergency department charge nurse. Care Plan Goals: Please see your family doctor in 3 days for a repeat wound check.
[2020-02-09 00:26] VITALS: BP 139/63; PULSE 71
== END 2020-02-08 17:12 | disposition home or self-care (01) ==
LOC: MW.ED 16:29
DX: L02.811 Cutaneous abscess of head [any part, except face] (principal); E11.9 Type 2 diabetes mellitus without complications; Z79.4 Long term (current) use of insulin
CPT/HCPCS: 99282

== ENCOUNTER 2022-07-12 16:05 | Emergency (ER) | payer OTHER, MEDICARE, MEDICAID ==
[2022-07-12] MEDS ORDERED: Sodium Chloride 0.9% 10 ML Syringe FLUSH PRN (17:02)
[2022-07-12] MEDS ORDERED: Sodium Chloride 0.9% 2.5 ML Syringe FLUSH PRN (17:02)
[2022-07-12 17:38] LABS: CARBON DIOXIDE,CO2 27.6 mmol/L (21.0-32.0)
[2022-07-12] MEDS ORDERED: Iopamidol 755 MG/ML 500 ML Multipack Bottle IVPUSH STA (18:36)
[2022-07-12] MEDS ORDERED: Nitrofurantoin Monohydrate/Macrocrystalline 100 MG Cap PO ONE (19:21)
[2022-07-12 19:48] VITALS: BP 152/92; PULSE 68
== END 2022-07-12 19:46 | disposition home or self-care (01) ==
LOC: MW.ED 16:05
DX: N30.00 Acute cystitis without hematuria (principal); I25.10 Atherosclerotic heart disease of native coronary artery without angina pectoris; E11.9 Type 2 diabetes mellitus without complications; Z79.4 Long term (current) use of insulin; Z79.01 Long term (current) use of anticoagulants
CPT/HCPCS: 36415; 74177; 80053; 81001; 85025; 87086; 99284; A9270; J3490; Q9967

== ENCOUNTER 2022-08-23 19:34 | Emergency (ER) | payer OTHER, MEDICARE, MEDICAID ==
[2022-08-23] MEDS ORDERED: Sodium Chloride 0.9% 2.5 ML Syringe FLUSH PRN (19:40)
[2022-08-23] MEDS ORDERED: Sodium Chloride 0.9% 10 ML Syringe FLUSH PRN (19:40)
[2022-08-23 19:41] VITALS: BP 178/67; PULSE 70
[2022-08-23] MEDS ORDERED: Ondansetron 4 MG/2 ML SDV IVPUSH ONE (19:42)
[2022-08-23] MEDS ORDERED: Morphine 4 MG/ML Syringe IVPUSH ONE (19:42)
[2022-08-23 20:21] LABS: CARBON DIOXIDE,CO2 28.6 mmol/L (21.0-32.0); POTASSIUM,K 4.4 mmol/L (3.5-5.1)
[2022-08-23] MEDS ORDERED: Iopamidol 755 MG/ML 500 ML Multipack Bottle IVPUSH STA (21:25)
== END 2022-08-23 23:16 | disposition home or self-care (01) ==
LOC: MW.ED 19:34
DX: S20.211A Contusion of right front wall of thorax, initial encounter (principal); I48.91 Unspecified atrial fibrillation; I25.10 Atherosclerotic heart disease of native coronary artery without angina pectoris; E78.00 Pure hypercholesterolemia, unspecified; E11.9 Type 2 diabetes mellitus without complications; Z79.01 Long term (current) use of anticoagulants; Z79.4 Long term (current) use of insulin; Z79.899 Other long term (current) drug therapy; W01.0XXA Fall on same level from slipping, tripping and stumbling without subsequent striking against object, initial encounter
CPT/HCPCS: 36415; 70450; 71260; 72131; 73030; 74177; 80053; 85025; 85610; 85730; 96374; 96375; 99284; J2270; J2405; J3490; Q9967

== ENCOUNTER 2022-11-15 10:47 | Emergency (ER) | payer OTHER, MEDICARE, MEDICAID ==
[2022-11-15] MEDS ORDERED: Sodium Chloride 0.9% 20 ML SDV IV PRN (10:55)
[2022-11-15] MEDS ORDERED: Sodium Chloride 0.9% 2.5 ML Syringe FLUSH PRN (10:55)
[2022-11-15] MEDS ORDERED: Sodium Chloride 0.9% 10 ML Syringe FLUSH PRN (10:55)
[2022-11-15] MEDS ORDERED: Iopamidol 755 MG/ML 500 ML Multipack Bottle IVPUSH STA (11:44)
[2022-11-15 11:49] LABS: CARBON DIOXIDE,CO2 27.9 mmol/L (21.0-32.0); POTASSIUM,K 3.8 mmol/L (3.5-5.1)
[2022-11-15 13:03] VITALS: BP 118/65; PULSE 68
== END 2022-11-15 13:15 | disposition home or self-care (01) ==
LOC: MW.ED 10:47
DX: R20.0 Anesthesia of skin (principal); I48.91 Unspecified atrial fibrillation; I25.10 Atherosclerotic heart disease of native coronary artery without angina pectoris; M19.90 Unspecified osteoarthritis, unspecified site; E11.9 Type 2 diabetes mellitus without complications; Z86.73 Personal history of transient ischemic attack (TIA), and cerebral infarction without residual deficits; Z79.4 Long term (current) use of insulin; Z79.01 Long term (current) use of anticoagulants; Z79.899 Other long term (current) drug therapy
CPT/HCPCS: 36415; 70450; 70496; 70498; 71045; 80053; 82947; 84484; 85025; 85610; 85730; 93005; 99285; J3490; Q9967

== ENCOUNTER 2022-11-16 13:11 | Observation (INO) | payer OTHER, MEDICARE, MEDICAID ==
[2022-11-16 17:04] LABS: CARBON DIOXIDE,CO2 27.2 mmol/L (21.0-32.0); POTASSIUM,K 4.5 mmol/L (3.5-5.1)
[2022-11-16] MEDS ORDERED: Acetaminophen 325 MG Tab PO PRN (18:34)
[2022-11-16] MEDS ORDERED: Temazepam 15 MG Cap PO PRN (18:34)
[2022-11-16] MEDS ORDERED: Ondansetron 4 MG/2 ML SDV IVPUSH PRN (18:34)
[2022-11-16] MEDS ORDERED: 50% Dextrose in Water 50 ML Syringe IVPUSH ONE (18:34)
[2022-11-16] MEDS ORDERED: Polyethylene Glycol 3350 Powder 17 GM Packet PO PRN (18:34)
[2022-11-16] MEDS ORDERED: Sodium Chloride 0.9% 2.5 ML Syringe FLUSH PRN (18:34)
[2022-11-16] MEDS ORDERED: Ondansetron 4 MG Tab.DIS PO PRN (18:34)
[2022-11-16] MEDS ORDERED: Sodium Chloride 0.9% 10 ML Syringe FLUSH PRN (18:34)
[2022-11-16] MEDS ORDERED: Sodium Chloride 0.9% 20 ML SDV IV PRN (18:34)
[2022-11-16] MEDS ORDERED: hydrALAZINE 20 MG/ML SDV IVPUSH PRN (18:34)
[2022-11-16] MEDS ORDERED: Docusate Sodium 100 MG Cap PO PRN (18:34)
[2022-11-16] MEDS ORDERED: Sodium Chloride 0.9% 1,000 ML IV SCH (18:45)
[2022-11-16] MEDS ORDERED: Glucagon,Human Recombinant 1 MG Vial IM PRN (18:52)
[2022-11-16] MEDS ORDERED: 50% Dextrose in Water 50 ML Syringe IVPUSH PRN (18:52)
[2022-11-16] MEDS: Apixaban 5 MG Tab PO SCH (20:22)
[2022-11-16] MEDS: Rosuvastatin 10 MG Tab PO SCH (20:22)
[2022-11-16] MEDS: Insulin Aspart 100 Units/ML 3 ML Pen SUBCUT SCH (20:23)
[2022-11-16] MEDS ORDERED: Insulin Detemir 100 Units/ML 3 ML Pen SUBCUT SCH (21:00)
[2022-11-17 06:31] LABS: POTASSIUM,K 4.5 mmol/L (3.5-5.1)
[2022-11-17 06:50] LABS: HEMOGLOBIN A1C 13.3 %
[2022-11-17] MEDS ORDERED: Insulin Aspart 100 Units/ML 3 ML Pen SUBCUT SCH (07:30)
[2022-11-17 07:45] VITALS: BP 125/50; PULSE 58
[2022-11-17] MEDS: Insulin Aspart 100 Units/ML 3 ML Pen SUBCUT SCH (07:45)
[2022-11-17] MEDS: Rosuvastatin 10 MG Tab PO SCH (08:37)
[2022-11-17] MEDS: Apixaban 5 MG Tab PO SCH (08:37)
[2022-11-17] MEDS ORDERED: Insulin Detemir 100 Units/ML 3 ML Pen SUBCUT SCH (09:00)
== END 2022-11-17 10:35 | disposition home or self-care (01) ==
LOC: MW.ED 13:11 → MW.MS 16:56
PROVIDERS: ADMIT Hospitalist; ATTEND Hospitalist
DX: R29.810 Facial weakness (principal); E11.65 Type 2 diabetes mellitus with hyperglycemia; D68.51 Activated protein C resistance; I10 Essential (primary) hypertension; E11.9 Type 2 diabetes mellitus without complications; E78.5 Hyperlipidemia, unspecified; I25.10 Atherosclerotic heart disease of native coronary artery without angina pectoris; M19.90 Unspecified osteoarthritis, unspecified site; G45.9 Transient cerebral ischemic attack, unspecified; Z79.4 Long term (current) use of insulin; Z95.5 Presence of coronary angioplasty implant and graft; Z79.899 Other long term (current) drug therapy; Z79.84 Long term (current) use of oral hypoglycemic drugs; Z79.82 Long term (current) use of aspirin; Z98.890 Other specified postprocedural states; Z20.822 Contact with and (suspected) exposure to COVID-19
CPT/HCPCS: 36415; 70551; 80048; 80053; 80061; 81001; 82947; 83036; 83735; 84100; 85025; 85610; 85652; 86038; 86140; 87635; 99285; A9270; G0378; J1815; J7030; U0002

== ENCOUNTER 2023-03-17 21:02 | Inpatient (IN) | payer OTHER, MEDICARE, MEDICAID ==
[2023-03-17] MEDS ORDERED: Sodium Chloride 0.9% 2.5 ML Syringe FLUSH PRN (23:50)
[2023-03-17] MEDS ORDERED: Sodium Chloride 0.9% 10 ML Syringe FLUSH PRN (23:50)
[2023-03-18 00:25] LABS: BASOPHILS PERCENT AUTO 0.1 % (0.0-1.5); EOSINOPHILS ABSOLUTE AUTO 0.1 K/uL (0.0-0.7); EOSINOPHILS PERCENT AUTO 0.9 % (0.0-7.0); HEMATOCRIT 35.2 % (38.0-50.0); LYMPHOCYTES PERCENT AUTO 14.4 % (16.0-40.0); MEAN CORPUSCULAR HEMOGLOBIN 30.5 pg (27.0-32.0); MEAN CORPUSCULAR HGB CONC 34.1 g/dL (31.0-37.0); MEAN CORPUSCULAR VOLUME 89.6 fL (80.0-98.0); MONOCYTES ABSOLUTE AUTO 0.6 K/uL (0.0-0.8); MONOCYTES PERCENT AUTO 9.2 % (0.0-15.0); NEUTROPHILS ABSOLUTE AUTO 5.2 K/uL (1.4-5.7); NEUTROPHILS PERCENT AUTO 75.4 % (48.0-80.0); PLATELET COUNT,PLT 162 K/uL (150-400); RED BLOOD CELL COUNT 3.93 M/uL (4.50-5.90); WHITE BLOOD CELL COUNT,WBC 6.95 K/uL (4.0-11.0)
[2023-03-18 00:33] LABS: INR 1.12 (0.86-1.11)
[2023-03-18] MEDS ORDERED: Lidocaine 2% 5 ML SDV INJECT ONE (00:54)
[2023-03-18] MEDS ORDERED: Lidocaine/Epineph/Tetracaine 3 ML Syringe TOP ONE (00:54)
[2023-03-18 01:04] LABS: A/G RATIO 0.6 (0.9-1.6); ALBUMIN 2.6 g/dL (3.4-5.0); CALCIUM 8.6 mg/dL (8.5-10.1); CARBON DIOXIDE,CO2 25.5 mmol/L (21.0-32.0); CREATININE 1.3 mg/dL (0.8-1.3); EST CRCL DRUG DOSING (CG) 53.78 mL/min; POTASSIUM,K 4.3 mmol/L (3.5-5.1); PROTEIN TOTAL,TP 6.7 g/dL (6.4-8.2)
[2023-03-18] MEDS: VANCOMYCIN IV SCH (03:27)
[2023-03-18] MEDS: [UNRECOGNIZED DRUG - OTHER] IV SCH (03:27)
[2023-03-18] MEDS ORDERED: 50% Dextrose in Water 50 ML Syringe IVPUSH PRN ×2 (06:33→06:35)
[2023-03-18] MEDS ORDERED: Glucagon,Human Recombinant 1 MG Vial IM PRN ×3 (06:33→07:00)
[2023-03-18] MEDS: Insulin Aspart 100 Units/ML 3 ML Pen SUBCUT SCH ×6 (10:04→16:50)
[2023-03-18] MEDS: Insulin Detemir 100 Units/ML 3 ML Pen SUBCUT SCH ×2 (10:06→22:09)
[2023-03-18] MEDS ORDERED: Non-Formulary Medication 1 Each (Acetaminophen/Hydrocodone 1 EACH Tablet) PO PRN (10:46)
[2023-03-18] MEDS ORDERED: Non-Formulary Medication 1 Each (Ramipril 5 MG Capsule) PO SCH (11:00)
[2023-03-18] MEDS: Piperacillin/Tazobactam 3.375 GM in Sodium Chloride 0.9% 100 ML IV SCH ×3 (11:21→22:25)
[2023-03-18] MEDS: Apixaban 5 MG Tab PO SCH ×2 (15:57→21:45)
[2023-03-18] MEDS ORDERED: Carvedilol 6.25 MG Tab PO SCH (17:00)
[2023-03-18] MEDS ORDERED: Acetaminophen 325 MG Tab PO PRN (18:52)
[2023-03-18] MEDS: Rosuvastatin 10 MG Tab PO SCH (21:44)
[2023-03-18] MEDS: Ezetimibe 10 MG Tab PO SCH (21:45)
[2023-03-19] MEDS: [UNRECOGNIZED DRUG - OTHER] IV SCH (03:40)
[2023-03-19] MEDS: VANCOMYCIN IV SCH (03:40)
[2023-03-19] MEDS: Piperacillin/Tazobactam 3.375 GM in Sodium Chloride 0.9% 100 ML IV SCH ×4 (05:26→22:43)
[2023-03-19 06:22] LABS: BASOPHILS PERCENT AUTO 0.1 % (0.0-1.5); EOSINOPHILS ABSOLUTE AUTO 0.1 K/uL (0.0-0.7); EOSINOPHILS PERCENT AUTO 1.5 % (0.0-7.0); HEMATOCRIT 33.6 % (38.0-50.0); HEMOGLOBIN 11.1 g/dL (13.0-17.0); LYMPHOCYTES ABSOLUTE AUTO 0.9 K/uL (0.6-2.4); LYMPHOCYTES PERCENT AUTO 13.2 % (16.0-40.0); MEAN CORPUSCULAR HEMOGLOBIN 29.4 pg (27.0-32.0); MEAN CORPUSCULAR VOLUME 89.1 fL (80.0-98.0); MONOCYTES ABSOLUTE AUTO 0.5 K/uL (0.0-0.8); MONOCYTES PERCENT AUTO 7.5 % (0.0-15.0); NEUTROPHILS ABSOLUTE AUTO 5.3 K/uL (1.4-5.7); NEUTROPHILS PERCENT AUTO 77.7 % (48.0-80.0); NRBC ABSOLUTE 0 K/uL; PLATELET COUNT,PLT 165 K/uL (150-400); RED BLOOD CELL COUNT 3.77 M/uL (4.50-5.90); WHITE BLOOD CELL COUNT,WBC 6.83 K/uL (4.0-11.0)
[2023-03-19 06:33] LABS: CALCIUM 8.4 mg/dL (8.5-10.1); CARBON DIOXIDE,CO2 27.9 mmol/L (21.0-32.0); CREATININE 1.2 mg/dL (0.8-1.3); EST CRCL DRUG DOSING (CG) 58.26 mL/min; POTASSIUM,K 3.6 mmol/L (3.5-5.1)
[2023-03-19] MEDS: Omeprazole 20 MG Cap.CR PO SCH (07:17)
[2023-03-19] MEDS: Insulin Aspart 100 Units/ML 3 ML Pen SUBCUT SCH ×7 (07:40→21:59)
[2023-03-19] MEDS: Insulin Detemir 100 Units/ML 3 ML Pen SUBCUT SCH ×2 (10:00→21:56)
[2023-03-19] MEDS: Apixaban 5 MG Tab PO SCH ×2 (10:01→21:56)
[2023-03-19] MEDS ORDERED: 50% Dextrose in Water 50 ML Syringe IVPUSH PRN (17:16)
[2023-03-19] MEDS ORDERED: Glucagon,Human Recombinant 1 MG Vial IM PRN (17:16)
[2023-03-19] MEDS: Rosuvastatin 10 MG Tab PO SCH (21:55)
[2023-03-19] MEDS: Ezetimibe 10 MG Tab PO SCH (21:56)
[2023-03-20] MEDS ORDERED: VANCOmycin 2 GM/400 ML 2 GM in Premix Bag 1 BAG IV SCH (03:30)
[2023-03-20] MEDS: Piperacillin/Tazobactam 3.375 GM in Sodium Chloride 0.9% 100 ML IV SCH ×3 (05:30→19:25)
[2023-03-20] MEDS: Omeprazole 20 MG Cap.CR PO SCH (06:39)
[2023-03-20] MEDS: Insulin Aspart 100 Units/ML 3 ML Pen SUBCUT SCH ×7 (07:45→21:05)
[2023-03-20] MEDS: Insulin Detemir 100 Units/ML 3 ML Pen SUBCUT SCH ×2 (09:33→20:59)
[2023-03-20] MEDS: Apixaban 5 MG Tab PO SCH ×2 (09:34→20:58)
[2023-03-20] MEDS: Rosuvastatin 10 MG Tab PO SCH (20:58)
[2023-03-20] MEDS: Ezetimibe 10 MG Tab PO SCH (20:58)
[2023-03-21] MEDS: Piperacillin/Tazobactam 3.375 GM in Sodium Chloride 0.9% 100 ML IV SCH ×2 (00:15→06:24)
[2023-03-21] MEDS: Omeprazole 20 MG Cap.CR PO SCH (07:10)
[2023-03-21] MEDS: Insulin Aspart 100 Units/ML 3 ML Pen SUBCUT SCH ×7 (07:34→21:07)
[2023-03-21] MEDS: Insulin Detemir 100 Units/ML 3 ML Pen SUBCUT SCH ×2 (08:12→21:02)
[2023-03-21] MEDS: Apixaban 5 MG Tab PO SCH ×2 (08:13→21:02)
[2023-03-21 10:09] LABS: BASOPHILS PERCENT AUTO 0.2 % (0.0-1.5); EOSINOPHILS ABSOLUTE AUTO 0.1 K/uL (0.0-0.7); EOSINOPHILS PERCENT AUTO 1.7 % (0.0-7.0); HEMATOCRIT 31.2 % (38.0-50.0); HEMOGLOBIN 10.3 g/dL (13.0-17.0); LYMPHOCYTES ABSOLUTE AUTO 0.7 K/uL (0.6-2.4); LYMPHOCYTES PERCENT AUTO 14.6 % (16.0-40.0); MEAN CORPUSCULAR HEMOGLOBIN 29.4 pg (27.0-32.0); MEAN CORPUSCULAR VOLUME 89.1 fL (80.0-98.0); MONOCYTES ABSOLUTE AUTO 0.4 K/uL (0.0-0.8); MONOCYTES PERCENT AUTO 8.7 % (0.0-15.0); NEUTROPHILS ABSOLUTE AUTO 3.5 K/uL (1.4-5.7); NEUTROPHILS PERCENT AUTO 74.8 % (48.0-80.0); NRBC ABSOLUTE 0 K/uL; PLATELET COUNT,PLT 168 K/uL (150-400); WHITE BLOOD CELL COUNT,WBC 4.72 K/uL (4.0-11.0)
[2023-03-21 10:51] LABS: CALCIUM 8.4 mg/dL (8.5-10.1); CARBON DIOXIDE,CO2 24.5 mmol/L (21.0-32.0); CREATININE 1.2 mg/dL (0.8-1.3); EST CRCL DRUG DOSING (CG) 58.26 mL/min
[2023-03-21] MEDS: Levofloxacin 750 MG Tab PO SCH (10:53)
[2023-03-21] MEDS ORDERED: Gadobenate Dimeglumine 529 MG/ML 20 ML SDV IVPUSH STA (19:24)
[2023-03-21] MEDS: Rosuvastatin 10 MG Tab PO SCH (21:02)
[2023-03-21] MEDS: Ezetimibe 10 MG Tab PO SCH (21:02)
[2023-03-22] MEDS: Omeprazole 20 MG Cap.CR PO SCH (07:02)
[2023-03-22] MEDS: Insulin Aspart 100 Units/ML 3 ML Pen SUBCUT SCH ×2 (07:28→08:08)
[2023-03-22] MEDS: Apixaban 5 MG Tab PO SCH (08:37)
[2023-03-22] MEDS: Insulin Detemir 100 Units/ML 3 ML Pen SUBCUT SCH (08:38)
[2023-03-22] MEDS: Levofloxacin 750 MG Tab PO SCH (10:29)
[2023-03-22 11:12] VITALS: PULSE 60
[2023-03-22 13:32] VITALS: BP 158/73
== END 2023-03-22 11:35 | disposition home or self-care (01) | DRG 638 ==
LOC: MW.ED 21:02 → MW.MS 03-18 03:10 → OBSVTOIN 03-20 10:30 → MW.MS 03-20 11:18
PROVIDERS: ADMIT Hospitalist; ATTEND Hospitalist
DX: E11.628 Type 2 diabetes mellitus with other skin complications (principal); I48.91 Unspecified atrial fibrillation; D68.51 Activated protein C resistance; R78.81 Bacteremia; E11.9 Type 2 diabetes mellitus without complications; J02.9 Acute pharyngitis, unspecified; M79.89 Other specified soft tissue disorders; M19.90 Unspecified osteoarthritis, unspecified site; L08.9 Local infection of the skin and subcutaneous tissue, unspecified; I25.10 Atherosclerotic heart disease of native coronary artery without angina pectoris; Z79.899 Other long term (current) drug therapy; J44.9 Chronic obstructive pulmonary disease, unspecified; G47.33 Obstructive sleep apnea (adult) (pediatric); S91.331A Puncture wound without foreign body, right foot, initial encounter; E11.40 Type 2 diabetes mellitus with diabetic neuropathy, unspecified; E11.65 Type 2 diabetes mellitus with hyperglycemia; B95.7 Other staphylococcus as the cause of diseases classified elsewhere; F43.10 Post-traumatic stress disorder, unspecified; E78.00 Pure hypercholesterolemia, unspecified; Z79.4 Long term (current) use of insulin; Z79.82 Long term (current) use of aspirin; Z86.718 Personal history of other venous thrombosis and embolism; Z79.01 Long term (current) use of anticoagulants; Z86.73 Personal history of transient ischemic attack (TIA), and cerebral infarction without residual deficits; Z87.891 Personal history of nicotine dependence; X78.9XXA Intentional self-harm by unspecified sharp object, initial encounter
CPT/HCPCS: 36415 ×2; 73620 ×2; 80048; 80053; 80202; 82947 ×8; 83605; 85025 ×2; 85610; 85652; 86140; 87040 ×2; 87070; 87077 ×2; 87186 ×2; 87205; 96365; 96366; 99285; A9270 ×5; J1815 ×2; J2543 ×8; J3370 ×4; J3490 ×9; 73720-26-RT; 73720-RT; 99284; A9577; J7050